=== PATIENT | female | born 1960 | race Caucasian/White ===

== ENCOUNTER → 2016-12-20 | Outpatient (CLI) | payer OTHER ==
--- NOTE | 2016-12-21 09:00 | WOMENS IMAGING REPORT ---
EXAM DESCRIPTION: BILAT SCREENING MAMMO W/CAD COMPLETED DATE/TIME: 12/20/2016 4:19 pm REASON FOR STUDY: Z12.31, ROUTINE SCREENING MAMMO Z12.31 ENCNTR SCREEN MAMMOGRAM FOR MALIGNANT NEOP LASM OF [place] COMPARISON: Multiple since 2008 TECHNIQUE: Standard craniocaudal and mediolateral oblique views of each breast recorded using digita l acquisition. LIMITATIONS: None. FINDINGS: Findings present which are benign by mammographic criteria. No suspicious masses, calcifi cations or architectural distortion. Pertinent benign findings: Stable bilateral breast calcifications Read with the assistance of CAD. .[facility] - R2 Cenova Version 1.3 .[facility] - R2 Cenova Version 1.3 .[facility] - R2 Cenova Version 2.4 .[facility] [place] - R2 Cenova Version 2.4 .[facility] - R2 Adjunct Professor Version 9.2 Benign mammographic findings may include one or more of the following: Smooth masses, popcorn/rim/co arse calcifications, asymmetries, post-procedure changes, and lesions with long-standing stability. IMPRESSION: BENIGN MAMMOGRAPHIC FINDINGS. BIRADS 2 BREAST DENSITY: b. There are scattered areas of fibroglandular density. BIRAD: 2 BENIGN FINDING(S) RECOMMENDATION: ROUTINE SCREENING Please consider bilateral screening tomosynthesis in December 2017 COMMENT: The patient has been notified of the results by letter per [place] requirements. Additional no tification policies are in place for contacting patient with suspicious or incomplete findings. Quality ID #[id number]: The [employer] recommends an annual screening mammogram for women aged 40 years or over. This facility utilizes a reminder system to ensure that all patients receive reminder letters, and/or direct phone calls for appointments. This includes reminders for routine scr eening mammograms, diagnostic mammograms, or other Breast Imaging Interventions when appropriate. Th is patient will be placed in the appropriate reminder system. The [employer] (ACR) has developed recommendations for screening MRI of the breast s in certain patient populations, to be used in conjunction with mammography. Breast MRI surveillanc e may be appropriate for women with more than 20% lifetime risk of developing breast cancer as deter mined by genetic testing, significant family history of the disease, or history of mantle radiation f or Hodgkins Disease. ACR Practice Guidelines 2008. TECHNICAL DOCUMENTATION: FINDING NUMBER: (1) ASSESSMENT: (1) JOB ID: [id number] [employer]- All Rights Reserved
== END ==
LOC: WI 14:44
PROVIDERS: ATTEND Nurse Practitioner
DX: Z12.31 Encounter for screening mammogram for malignant neoplasm of breast (principal)
CPT/HCPCS: 77067; G0202

== ENCOUNTER 2017-07-18 13:46 | Inpatient (IN) | payer OTHER ==
[~2017-07-18 13:46] MED LIST: DEXAMETHASONE SOD PHOSPHATE INJ 4 MG/1 ML VIAL ONE; LIDOCAINE 2% INJ-PF (20 MG/ML) 2 ML AMPUL ONE; METOCLOPRAMIDE HCL INJ/PF 10 MG/2 ML SDV ONE; ONDANSETRON HCL INJ/PF 4 MG/2 ML SDV ONE; ROCURONIUM BROMIDE INJ 50 MG/5 ML VIAL IV ONE; SUCCINYLCHOLINE CHLORIDE INJ 200 MG/10 ML VIAL ONE
--- NOTE | 2017-07-18 15:23 | ER Document Report ---
ED Medical Screen (RME) - General Chief Complaint: Abdominal Pain Stated Complaint: LOWER ABDOMINAL PAIN Time Seen by Provider: 07/18/17 15:17 Mode of Arrival: Ambulatory Information source: Patient Notes: 57-year-old female presents with complaints of nausea vomiting diarrhea over the past week symptoms worsen since 5:00 yesterday. Patient notes abdominal distention, xray at [facility] concerning for early sbo vs ileus I have greeted and performed a rapid initial assessment of this patient. A comprehensive ED assessment and evaluation of the patient, analysis of test results and completion of the medical decision making process will be conducted by additional ED providers. PHYSICAL EXAMINATION: GENERAL: Well-appearing, well-nourished and in no acute distress. HEAD: Atraumatic, normocephalic. EYES: Pupils equal round extraocular movements intact, conjunctiva are normal. ENT: Nares patent NECK: Normal range of motion LUNGS: No respiratory distress Abd: distenstion Musculoskeletal: Normal range of motion NEUROLOGICAL: Normal speech, normal gait. PSYCH: Normal mood, normal affect. SKIN: Warm, Dry, normal turgor, no rashes or lesions noted. TRAVEL OUTSIDE OF THE [place] IN LAST 30 DAYS: No - Related Data Allergies/Adverse Reactions: Sulfa (Sulfonamide Antibiotics) Allergy (Verified 07/18/17 13:53) Past Medical History - Social History Frequency of alcohol use: None Drug Abuse: None Renal/ Medical History: Denies: Hx Peritoneal Dialysis Physical Exam - Vital signs Vitals: Temp Pulse Resp BP Pulse Ox 98.9 F 105 H 18 122/56 L 96 07/18/17 13:54 07/18/17 13:54 07/18/17 13:54 07/18/17 13:54 07/18/17 13:54 Course - Vital Signs Vital signs: Temp Pulse Resp BP Pulse Ox 98.9 F 105 H 18 122/56 L 96 07/18/17 13:54 07/18/17 13:54 07/18/17 13:54 07/18/17 13:54 07/18/17 13:54
[2017-07-18] MEDS ORDERED: HYDROMORPHONE HCL INJ/PF 2 MG/ML AMPULE IV ONE ×2 (15:24→19:03)
[2017-07-18] MEDS ORDERED: ONDANSETRON HCL INJ/PF 4 MG/2 ML SDV IV ONE (15:24)
[2017-07-18] MEDS ORDERED: NORMAL SALINE 1000 ML 1,000 ML IV ONE (15:24)
[2017-07-18 16:29] LABS: HEMATOCRIT 37.3 % (36.0-47.0); HEMOGLOBIN 12.6 g/dL (12.0-15.5); MEAN CORPUSCULAR HEMOGLOBIN 27.9 pg (27.0-33.4); MEAN CORPUSCULAR HGB CONC 33.7 g/dL (32.0-36.0); MEAN CORPUSCULAR VOLUME 83 fl (80-97); PLATELET COUNT 779 10^3/uL (150-450); RED CELL DISTRIBUTION WIDTH 13.5 % (11.5-14.0); WHITE BLOOD COUNT 29.5 10^3/uL (4.0-10.5)
[2017-07-18 16:32] LABS: APPEARANCE,URINE SLIGHTLY-CLOUDY; BILIRUBIN,URINE SMALL (NEGATIVE); COLOR,URINE AMBER; GLUCOSE, URINE 50 mg/dL (NEGATIVE); KETONES,URINE 20 mg/dL (NEGATIVE); LEUKOCYTE ESTERASE,URINE TRACE (NEGATIVE); NITRITE,URINE NEGATIVE (NEGATIVE); PROTEIN,URINE 100 mg/dL (NEGATIVE); URINE SPECIFIC GRAVITY 1.036
[2017-07-18 16:47] LABS: ABSOLUTE LYMPHOCYTES# (MANUAL) 1.2 10^3/uL (0.5-4.7); ABSOLUTE MONOCYTES # (MANUAL) 1.5 10^3/uL (0.1-1.4); ABSOLUTE NEUTROPHILS# (MANUAL) 26.8 10^3/uL (1.7-8.2); BAND NEUTROPHILS % (MANUAL) 3 % (3-5); BASOPHILS % (MANUAL) 0 % (0-2); EOSINOPHILS % (MANUAL) 0 % (0-6); LYMPHOCYTES % (MANUAL) 4 % (13-45); MONOCYTES % (MANUAL) 5 % (3-13); SEGMENTED NEUTROPHILS % (MAN) 88 % (42-78); TOTAL CELLS COUNTED 100
[2017-07-18 16:48] LABS: PLATELET COMMENT INCREASED; TOXIC GRANULATION SLIGHT
[2017-07-18 16:49] LABS: ALANINE AMINOTRANSFERASE 25 U/L (9-52); ALBUMIN 3.4 g/dL (3.5-5.0); ALKALINE PHOSPHATASE 135 U/L (38-126); ANION GAP 13 (5-19); ASPARTATE AMINO TRANSFERASE 12 U/L (14-36); BILIRUBIN,DIRECT 0.2 mg/dL (0.0-0.4); BILIRUBIN,TOTAL 0.3 mg/dL (0.2-1.3); BLOOD UREA NITROGEN 19 mg/dL (7-20); CALCIUM 9.2 mg/dL (8.4-10.2); CARBON DIOXIDE 30 mmol/L (22-30); CHLORIDE 99 mmol/L (98-107); GLUCOSE 138 mg/dL (75-110); LIPASE 37.5 U/L (23-300); POTASSIUM 3.6 mmol/L (3.6-5.0); SODIUM 141.9 mmol/L (137-145)
--- NOTE | 2017-07-18 19:02 | RADIOLOGY REPORT (SQ) ---
EXAM DESCRIPTION: CT ABD/PELVIS WITH IV ORAL COMPLETED DATE/TIME: 07/18/2017 6:41 pm REASON FOR STUDY: sbo ? COMPARISON: None. TECHNIQUE: CT scan of the abdomen and pelvis performed using helical scanning technique with dynamic intravenous contrast injection. No oral contrast. Images reviewed with lung, soft tissue, and bone windows. Reconstructed coronal and sagittal MPR images reviewed. Delayed images for evaluation of the urinary system also acquired. All images stored on PACS. All CT scanners at this facility use dose modulation, iterative reconstruction, and/or weight based d osing when appropriate to reduce radiation dose to as low as reasonably achievable (ALARA). [facility]: Dose Right [facility]: CareDose [facility]: Dose Right [facility]: Teradose 4D [facility]: Droplr CONTRAST TYPE AND DOSE: contrast/concentration: Isovue 370.00 mg/ml; Total Contrast Delivered: 81.0 ml; Total Saline Delivered: 43.0 ml RENAL FUNCTION: Creatinine 0.69 RADIATION DOSE: CT Rad equipment meets quality standard of care and radiation dose reduction techniq ues were employed. CTDIvol: 11.3 - 15.8 mGy. DLP: 1391 mGy-cm.. LIMITATIONS: None. FINDINGS: LOWER CHEST: There are minimal linear densities in the lung bases most consistent with ate lectatic changes. LIVER: Normal size. No masses. No dilated ducts. SPLEEN: Normal size. No focal lesions. PANCREAS: No masses. No significant calcifications. No adjacent inflammation or peripancreatic fluid collections. Pancreatic duct not dilated. GALLBLADDER: No identified stones by CT criteria. No inflammatory changes to suggest cholecystitis. ADRENAL GLANDS: No significant masses or asymmetry. RIGHT KIDNEY AND URETER: No solid masses. No significant calcifications. No hydronephrosis or hyd roureter. LEFT KIDNEY AND URETER: No solid masses. No significant calcifications. No hydronephrosis or hydr oureter. AORTA AND VESSELS: No aneurysm. No dissection. Renal arteries, SMA, celiac without stenosis. RETROPERITONEUM: No retroperitoneal adenopathy, hemorrhage or masses. BOWEL AND PERITONEAL CAVITY: Multiple air,fluid and contrast distended small bowel loops are identifi ed consistent with a small bowel obstruction. A complex mass is identified in the right lower quadra nt which appears to involve the cecum and appendix. The appearance would suggest an infectious or in flammatory process with possible abscess formation. This could conceivably be related to an appendic itis or cecal inflammatory process. The possibility of an underlying cecal neoplasm cannot be exclud ed. Calcification is identified within the inflammatory process which may be related to an appendico lith. APPENDIX: Not identified PELVIS: A 2.7 cm in diameter cystic mass is identified in the left pelvis presumably ovarian in etiol ogy. No free fluid. Normal bladder. ABDOMINAL WALL: No masses. No hernias. BONES: No significant or acute findings. OTHER: No other significant finding. IMPRESSION: Findings consistent with a small bowel obstruction as noted above. Complex mass is iden tified in the right lower quadrant as noted above which appears to involve the cecum and appendix. T he appearance would suggest an infectious or inflammatory process as noted above. Possibility of an underlying cecal neoplasm cannot be excluded. Clinical correlation is recommended. Other findings a s noted above TECHNICAL DOCUMENTATION: JOB ID: [id number] Quality ID # [id number]: Final reports with documentation of one or more dose reduction techniques (e.g., Au tomated exposure control, adjustment of the mA and/or kV according to patient size, use of iterative reconstruction technique) 2010 [employer]- All Rights Reserved
[2017-07-18] MEDS ORDERED: RINGERS SOLUTION,LACTATED 1,000 ML IV ONE (19:13)
--- NOTE | 2017-07-18 19:17 | ER Document Report ---
ED General - General Chief Complaint: Abdominal Pain Stated Complaint: LOWER ABDOMINAL PAIN Time Seen by Provider: 07/18/17 15:17 Mode of Arrival: Ambulatory Information source: Patient, Relative TRAVEL OUTSIDE OF THE [place] IN LAST 30 DAYS: No - HPI Patient complains to provider of: Abdominal Pain Onset: Last week Onset/Duration: Gradual Severity: Moderate Pain Level: 4 Associated symptoms: Diarrhea, Nausea Exacerbated by: Movement, Walking, Coughing, Deep breathing Relieved by: Denies Similar symptoms previously: No Recently seen / treated by doctor: Yes - Over from primary medical doctor's office at [facility] urgent Notes: 57-year-old female. She states she has no past medical history. She only takes [id number] medications including Flonase. Past surgical history significant for 2 C-sections. Patient did not get her flu vaccination. Patient is sent over from her primary medical doctors at [facility] urgent care at [place]. She presented there for abdominal pain. Patient states she has had the abdominal pain waxing and waning for the last week. It started in the bilateral lower quadrants and then became diffuse. She has had some chills. No vomiting no fevers. Patient is tried mag citrate without leave. Last bowel movement was today. Last p.o. intake was last night around 930 patient had a couple green beans. Acute abdominal series today showed evolving small bowel obstruction. Sent here for evaluation. - Related Data Allergies/Adverse Reactions: Sulfa (Sulfonamide Antibiotics) Allergy (Verified 07/18/17 13:53) Past Medical History - General Information source: Patient - Social History Smoking Status: Never Smoker Frequency of alcohol use: None Drug Abuse: None Lives with: Family Family History: Reviewed & Not Pertinent Patient has suicidal ideation: No Patient has homicidal ideation: No - Medical History Notes: She has not had a colonoscopy or endoscopy - Past Medical History Cardiac Medical History: Reports: None Pulmonary Medical History: Reports: None EENT Medical History: Reports: None Neurological Medical History: Reports: None Endocrine Medical History: Reports: None Renal/ Medical History: Reports: None. Denies: Hx Peritoneal Dialysis Malignancy Medical History: Reports: None GI Medical History: Reports: None Musculoskeltal Medical History: Reports None Skin Medical History: Reports None Psychiatric Medical History: Reports: None Traumatic Medical History: Reports: None Past Surgical History: Reports: None, Hx Section Review of Systems - Review of Systems Constitutional: No symptoms reported EENT: No symptoms reported Cardiovascular: No symptoms reported Respiratory: No symptoms reported Gastrointestinal: See HPI Genitourinary: No symptoms reported Female Genitourinary: No symptoms reported Skin: No symptoms reported Hematologic/Lymphatic: No symptoms reported Neurological/Psychological: No symptoms reported Physical Exam - Vital signs Vitals: Temp Pulse Resp BP Pulse Ox 98.9 F 105 H 18 122/56 L 96 07/18/17 13:54 07/18/17 13:54 07/18/17 13:54 07/18/17 13:54 07/18/17 13:54 - Notes Notes: PHYSICAL EXAMINATION: GENERAL: Appearing female laying in bed in mild distress secondary to abdominal discomfort HEAD: Atraumatic, normocephalic. EYES: Pupils equal round and reactive to light, extraocular movements intact, conjunctiva are normal. ENT: Nares patent, oropharynx clear without exudates. Dry mucous membranes. NECK: Normal range of motion, supple without lymphadenopathy LUNGS: Breath sounds clear to auscultation bilaterally and equal. No wheezes rales or rhonchi. HEART: Regular rate and rhythm without murmurs ABDOMEN: Markedly distended abdomen with hypo-active bowel sounds. No masses appreciated.. Female : deferred Musculoskeletal: Normal range of motion, no pitting or edema. No cyanosis. NEUROLOGICAL: Cranial nerves grossly intact. Normal speech. Normal sensory, motor exams PSYCH: Normal mood, normal affect. SKIN: Warm, Dry, normal turgor, no rashes or lesions noted. Course - Re-evaluation Re-evalutation: 07/18/17 19:16 Surgery, Dr. Montgomery called. Discussed patient. He is reviewing ct scan. 07/18/17 20:00 Dr. Montgomery presented to the emergency department. He asked for the patient have Levaquin and Flagyl as well as IV hydration. All ordered. And the nurse was made aware. NG tube can be placed in the OR. 07/18/17 20:05 Labs- All tests 24 hr 07/18/17 07/18/17 07/18/17 16:00 16:00 16:00 WBC 29.5 H RBC 4.50 Hgb 12.6 Hct 37.3 MCV 83 MCH 27.9 MCHC 33.7 RDW 13.5 Plt Count 779 H Total Counted 100 Seg Neutrophils % Not Reportable Seg Neuts % (Manual) 88 H Band Neutrophils % 3 Lymphocytes % Not Reportable Lymphocytes % (Manual) 4 L Monocytes % Not Reportable Monocytes % (Manual) 5 Eosinophils % Not Reportable Eosinophils % (Manual) 0 Basophils % Not Reportable Basophils % (Manual) 0 Absolute Neutrophils Not Reportable Abs Neuts (Manual) 26.8 H Absolute Lymphocytes Not Reportable Abs Lymphs (Manual) 1.2 Absolute Monocytes Not Reportable Abs Monocytes (Manual) 1.5 H Absolute Eosinophils Not Reportable Absolute Eos (Manual) 0.0 Absolute Basophils Not Reportable Abs Basophils (Manual) 0.0 Toxic Granulation SLIGHT Platelet Comment INCREASED Sodium 141.9 Potassium 3.6 Chloride 99 Carbon Dioxide 30 Anion Gap 13 BUN 19 Creatinine 0.69 Est GFR ( Amer) > 60 Est GFR (Non-Af Amer) > 60 Glucose 138 H Calcium 9.2 Total Bilirubin 0.3 Direct Bilirubin 0.2 Neonat Total Bilirubin Not Reportable Neonat Direct Bilirubin Not Reportable Neonat Indirect Bili Not Reportable AST 12 L ALT 25 Alkaline Phosphatase 135 H Total Protein 6.0 L Albumin 3.4 L Lipase 37.5 Urine Color DELIO Urine Appearance SLIGHTLY-CLOUDY Urine pH 5.0 Ur Specific [place] 1.036 Urine Protein 100 H Urine Glucose (UA) 50 H Urine Ketones 20 H Urine Blood MODERATE H Urine Nitrite NEGATIVE Urine Bilirubin SMALL H Urine Urobilinogen 2.0 H Ur Leukocyte Esterase TRACE H Urine WBC (Auto) 28 Urine RBC (Auto) 18 U Hyaline Cast (Auto) 3 Squamous Epi Cells Auto 1 Urine Mucus (Auto) MANY Urine Ascorbic Acid NEGATIVE Abdomen/Pelvis CT 07/18/17 15:23 IMPRESSION: Findings consistent with a small bowel obstruction as noted above. Complex mass is identified in the right lower quadrant as noted above which appears to involve the cecum and appendix. The appearance would suggest an infectious or inflammatory process as noted above. Possibility of an underlying cecal neoplasm cannot be excluded. Clinical correlation is recommended. Other findings as noted above - Vital Signs Vital signs: Temp Pulse Resp BP Pulse Ox 98.9 F 105 H 18 122/56 L 96 07/18/17 13:54 07/18/17 13:54 07/18/17 13:54 07/18/17 13:54 07/18/17 13:54 - Laboratory Result Diagrams: 07/18/17 16:00 07/18/17 16:00 Laboratory results interpreted by me: 07/18/17 07/18/17 07/18/17 16:00 16:00 16:00 WBC 29.5 H Plt Count 779 H Seg Neuts % (Manual) 88 H Lymphocytes % (Manual) 4 L Abs Neuts (Manual) 26.8 H Abs Monocytes (Manual) 1.5 H Glucose 138 H AST 12 L Alkaline Phosphatase 135 H Total Protein 6.0 L Albumin 3.4 L Urine Protein 100 H Urine Glucose (UA) 50 H Urine Ketones 20 H Urine Blood MODERATE H Urine Bilirubin SMALL H Urine Urobilinogen 2.0 H Ur Leukocyte Esterase TRACE H - Diagnostic Test Radiology reviewed: Image reviewed, Reports reviewed Discharge - Discharge Clinical Impression: Small bowel obstruction, Abdominal mass Condition: Serious Disposition: ADMITTED INPATIENT Admitting Provider: Surgicalist - Dr. Montgomery Unit Admitted: Surgical Floor
[2017-07-18] MEDS ORDERED: LEVOFLOXACIN 500 MG/D5W RTU 500 MG/100 ML RTUPB IV SCH (20:00)
--- NOTE | 2017-07-18 20:10 | PDOC H&P ---
History of Present Illness Patient complains of: Abdominal pain History of Present Illness: NATALEE ANDERSON is a 57 year old female who was in usual state of good health until last week when she had gradual onset of crampy lower abdominal pain that worsened with it severely worsening yesterday. Patient had some nausea and abdominal bloating. She had a bowel movement earlier today. She denies any emesis. She has felt some chills. She denies any prior history of intestinal problems. She has never had a colonoscopy. Her only past surgical history is 2 C-sections. She has not had any weight loss in the past few months nor malaise in the past few months nor significant bowel habit changes in the last few months. Due to the pain and poor appetite she has not eaten all day today. Social History Smoking Status: Never Smoker Family History Parental Family History Reviewed: No Children Family History Reviewed: No Sibling(s) Family History Reviewed.: No Medication/Allergy Allergies/Adverse Reactions: Sulfa (Sulfonamide Antibiotics) Allergy (Verified 07/18/17 13:53) Physical Exam Vital Signs: Temp Pulse Resp BP Pulse Ox 98.9 F 105 H 18 122/56 L 96 07/18/17 13:54 07/18/17 13:54 07/18/17 13:54 07/18/17 13:54 07/18/17 13:54 Intake & Output 07/17/17 07/18/17 07/19/17 06:59 06:59 06:59 Weight 75.2 kg General appearance: PRESENT: no acute distress, cooperative Eye exam: PRESENT: conjunctiva pink Neck exam: PRESENT: other - Supple with no masses Respiratory exam: PRESENT: clear to auscultation stephen Cardiovascular exam: PRESENT: RRR GI/Abdominal exam: PRESENT: other - Distended, tight, tender diffusely with rebound and guarding. Maximal tenderness in the right lower quadrant. Extremities exam: PRESENT: other - No swelling Neurological exam: PRESENT: alert, awake Psychiatric exam: PRESENT: appropriate affect Skin exam: PRESENT: warm Results Laboratory Results: 07/18/17 16:00 07/18/17 16:00 07/18/17 07/18/17 07/18/17 16:00 16:00 16:00 WBC 29.5 H RBC 4.50 Hgb 12.6 Hct 37.3 MCV 83 MCH 27.9 MCHC 33.7 RDW 13.5 Plt Count 779 H Seg Neutrophils % Not Reportable Lymphocytes % Not Reportable Monocytes % Not Reportable Eosinophils % Not Reportable Basophils % Not Reportable Absolute Neutrophils Not Reportable Absolute Lymphocytes Not Reportable Absolute Monocytes Not Reportable Absolute Eosinophils Not Reportable Absolute Basophils Not Reportable Sodium 141.9 Potassium 3.6 Chloride 99 Carbon Dioxide 30 Anion Gap 13 BUN 19 Creatinine 0.69 Est GFR ( Amer) > 60 Est GFR (Non-Af Amer) > 60 Glucose 138 H Calcium 9.2 Total Bilirubin 0.3 AST 12 L ALT 25 Alkaline Phosphatase 135 H Total Protein 6.0 L Albumin 3.4 L Lipase 37.5 Urine Color DELIO Urine Appearance SLIGHTLY-CLOUDY Urine pH 5.0 Ur Specific [place] 1.036 Urine Protein 100 H Urine Glucose (UA) 50 H Urine Ketones 20 H Urine Blood MODERATE H Urine Nitrite NEGATIVE Ur Leukocyte Esterase TRACE H Urine WBC (Auto) 28 Urine RBC (Auto) 18 Impressions: Abdomen/Pelvis CT 07/18/17 15:23 IMPRESSION: Findings consistent with a small bowel obstruction as noted above. Complex mass is identified in the right lower quadrant as noted above which appears to involve the cecum and appendix. The appearance would suggest an infectious or inflammatory process as noted above. Possibility of an underlying cecal neoplasm cannot be excluded. Clinical correlation is recommended. Other findings as noted above Assessment & Plan - Diagnosis (1) Peritonitis (acute) generalized Is this a current diagnosis for this admission?: Yes Plan: With inflammatory mass in the right lower quadrant likely a perforated appendicitis versus atypical presentation of cecal cancer with perforation. In light of her peritonitis, will hydrate patient give antibiotics and take her to the OR for an exploratory laparotomy with probable partial colon resection, possible appendectomy, possible colostomy. I have discussed with the patient the risk and benefits of the procedure including risk of sepsis, infection, bleeding, adjacent structure injury, anastomotic leak, adjacent structure injury especially the ureter. Patient understands and agrees to proceed.
[2017-07-18] MEDS: METRONIDAZOLE 500 MG/NS RTU 100 ML IV SCH (21:36)
[2017-07-19] MEDS ORDERED: FENTANYL CITRATE INJ/PF 250 MCG/5 ML AMPULE ONE (01:14)
[2017-07-19] MEDS ORDERED: ACETAMINOPHEN 100 ML IV ONE (01:15)
[2017-07-19] MEDS ORDERED: EPHEDRINE SULFATE INJ 50 MG/1 ML AMPULE ONE (01:15)
[2017-07-19] MEDS ORDERED: PROPOFOL INJ 200 MG/20 ML VIAL IV ONE (01:15)
[2017-07-19] MEDS ORDERED: BUPIVACAINE HCL 0.25 % INJ/PF (2.5 MG/1 ML) 30 ML VIAL ONE (01:15)
[2017-07-19] MEDS ORDERED: MIDAZOLAM 2 MG/2 ML INJ ONE ×2 (01:15→04:28)
[2017-07-19] MEDS ORDERED: HYDROMORPHONE HCL INJ/PF 2 MG/ML AMPULE ONE ×2 (01:16→04:32)
[2017-07-19] MEDS ORDERED: DEXTROSE 50%-WATER 25 GM/50 ML DISP.SYRIN IV PRN ×2 (05:04)
[2017-07-19] MEDS ORDERED: GLUCAGON,HUMAN RECOMB 1 MG INJ SUBCUT PRN (05:04)
[2017-07-19] MEDS ORDERED: ONDANSETRON HCL INJ/PF 4 MG/2 ML SDV IV PRN (05:04)
[2017-07-19] MEDS ORDERED: DEXTROSE 40% GEL 15 GM TUBE PO PRN ×2 (05:04)
--- NOTE | 2017-07-19 05:37 | Operative Report ---
Operative Report DATE OF SURGERY: 07/19/17 PREOPERATIVE DIAGNOSIS: Peritonitis POSTOPERATIVE DIAGNOSIS: Inflammatory mass of the cecum with peritonitis and small bowel obstruction, right adnexal mass. Gallstone OPERATION: Exploratory laparotomy with right hemicolectomy and right adnexal mass excision. SURGEON: GILBERTO COUCH ANESTHESIA: GA TISSUE REMOVED OR ALTERED: Right colon, right adnexal mass COMPLICATIONS: None ESTIMATED BLOOD LOSS: 100 cc INTRAOPERATIVE FINDINGS: Inflammatory mass of the pelvis encompassing the cecum and terminal ileum and the right adnexa. Turbid fluid throughout the peritoneal cavity consistent with peritonitis. Gallstones. PROCEDURE: Informed consent was obtained. Patient was brought to the operating room and placed on the operating room table in the supine position. After satisfactory induction of general anesthesia patient's abdomen was prepped and draped in usual sterile fashion. A midline abdominal incision was made dissection carried down through the fascia and the peritoneal cavity was entered without difficulty. There was turbid fluid throughout the peritoneal cavity. Exploratory laparotomy was performed. The liver felt smooth. Stomach felt smooth and NG tube position was confirmed. The gallbladder appeared normal however a palpable stone was noted. The small bowel was markedly distended the transverse colon appeared normal. The distal right colon appeared normal. The descending colon felt normal. The cecum and the terminal ileum was plastered to the pelvis with a feel of inflammatory mass. The adhesion of the terminal ileum was creating a functional obstruction. The right adnexa was also involved with this process. The sigmoid colon felt normal proximal and distal to this process and there was some adhesion to this sigmoid colon from this inflammatory process but it appeared that the sigmoid colon was not the primary culprit. Purulent fluid was noted around the cecal region. The right colon was mobilized beginning at the hepatic flexure taking great care to avoid injury to the underlying duodenum, entering a clean plane and working inferiorly toward where the cecum was plastered to the pelvis. With combination of blunt and sharp dissection the cecum was able to be mobilized off of the pelvis it felt firm with inflammatory changes of the cecum and the terminal ileum with no discernible appendix. The terminal ileum was divided with a KENY stapling device several centimeters away from the ileocecal junction where it felt soft and pliable. The very distal terminal ileum wall felt firm and edematous. The transverse colon was divided just distal to the hepatic flexure with a KENY stapling device. The mesentery of the right colon was resected. The ileocolic artery was taken near its origin by clamping dividing and tying. The mesentery of the terminal ileum was markedly thickened and the resected portion's mesentery was taken using the LigaSure device. The specimen was passed off the table. Inspection of the pelvis demonstrated inflammatory changes in the pelvis with a right adnexal mass. Gynecology consultation was obtained. We felt that with the inflammatory changes of the right adnexa, resection of this adnexal mass was indicated. Please refer to gynecology operative report for this portion of the dictation. The sigmoid colon was again inspected and it felt soft and pliable proximal and distal to the area of inflammatory changes in the pelvis. Again I did not think that the sigmoid colon was the culprit based on this finding. The small bowel appeared dilated and slightly thickened distally but otherwise appeared normal with no other points of obstruction. Bowel continuity was re-created creating a [id number] functional end-to-end anastomosis between the ileum and the transverse colon. The anastomosis was made with a KENY stapling device. The enterotomies created to introduced a stapling device was closed with a TA stapling device. Strong palpable pulses were noted in the transverse colon end and the ileum. No evidence of ischemia was noted at the anastomosis. Anastomosis appeared secure. The mesenteric defect was closed with running Vicryl suture. The operative field was irrigated and irrigant aspirated out. A Blake-Espinoza drain was placed into the patient's pelvis and brought out through separate stab incision in the patient's right lower abdomen and sutured in place. Hemostasis appeared to be good. Sponge needle and instrument counts were all correct. Omentum was draped over the bowel. Fascia was closed with running PDS suture. Skin was closed loosely with alayna and packed getting was placed in between. Marcaine was injected at the operative site. Patient tolerated the procedure well with no apparent complications and was taken to the intensive care unit.
[2017-07-19] MEDS ORDERED: PROPOFOL 100 ML IV ONE (05:57)
[2017-07-19] MEDS ORDERED: PROPOFOL 100 ML IV PRN (06:02)
[2017-07-19] MEDS: NORMAL SALINE 1000 ML 1,000 ML IV PRN ×3 (06:45→21:44)
[2017-07-19] MEDS: METRONIDAZOLE 500 MG/NS RTU 100 ML IV SCH ×4 (06:45→18:07)
[2017-07-19 06:58] LABS: HEMATOCRIT 34.8 % (36.0-47.0); HEMOGLOBIN 11.4 g/dL (12.0-15.5); MEAN CORPUSCULAR HEMOGLOBIN 27.1 pg (27.0-33.4); MEAN CORPUSCULAR HGB CONC 32.7 g/dL (32.0-36.0); MEAN CORPUSCULAR VOLUME 83 fl (80-97); PLATELET COUNT 696 10^3/uL (150-450); RED CELL DISTRIBUTION WIDTH 13.7 % (11.5-14.0); WHITE BLOOD COUNT 25.7 10^3/uL (4.0-10.5)
[2017-07-19 07:11] LABS: ANION GAP 7 (5-19); BLOOD UREA NITROGEN 23 mg/dL (7-20); CARBON DIOXIDE 26 mmol/L (22-30); CHLORIDE 103 mmol/L (98-107); GLUCOSE 164 mg/dL (75-110); SODIUM 136.4 mmol/L (137-145)
[2017-07-19 09:22] LABS: ARTERIAL BLOOD BASE EXCESS 0.7 mmol/L; ARTERIAL BLOOD H2CO3 1.19 mmol/L (1.05-1.35); ARTERIAL BLOOD HCO3 25.2 mmol/L (20-26); ARTERIAL BLOOD O2 SATURATION 98.3 % (94-98); ARTERIAL BLOOD PCO2 39.7 mmHg (35-45); ARTERIAL BLOOD PH 7.42 (7.35-7.45); ARTERIAL BLOOD PO2 117.3 mmHg (80-100); ARTERIAL BLOOD TOTAL CO2 26.4 mmol/L (21-25)
[2017-07-19 09:25] LABS: ARTERIAL BLOOD FIO2 40%
[2017-07-19] MEDS: LORATADINE/PSEUDOEPHEDRINE SUL 10-240 MG TAB.SR.24H PO SCH (11:08)
[2017-07-19] MEDS: FLUTICASONE NASAL SPRAY 50 MCG/SPRY 120 SPRAY/16 GM NASL SCH (11:08)
--- NOTE | 2017-07-19 12:05 | PDOC PROGRESS REPORT ---
Subjective Progress Note for:: 07/19/17 Subjective:: POD #1 s/p right hemicolectomy for peritonitis with a cecal inflammatory mass. The patient is doing well, remains intubated on mechanical ventilation. Reason For Visit: PERITONITIS Physical Exam Vital Signs: Temp Pulse Resp BP Pulse Ox 98.4 F 95 16 139/67 H 100 07/19/17 10:00 07/19/17 11:27 07/19/17 11:27 07/19/17 11:27 07/19/17 11:27 Intake & Output 07/18/17 07/19/17 07/20/17 06:59 06:59 06:59 Intake Total 1000 Output Total 1000 220 Balance 0 -220 Weight 76.5 kg General appearance: PRESENT: no acute distress, other - on mechanical ventilation via an orotracheal tube. Head exam: PRESENT: atraumatic Eye exam: PRESENT: conjunctiva pink Ear exam: PRESENT: normal external ear exam Mouth exam: PRESENT: other - orotracheal tube in place Neck exam: ABSENT: carotid bruit, JVD, lymphadenopathy, thyromegaly Respiratory exam: PRESENT: clear to auscultation stephen, other - on mechanical ventilation Cardiovascular exam: PRESENT: RRR. ABSENT: diastolic murmur, rubs, systolic murmur GI/Abdominal exam: PRESENT: other - midline surgical incision has a dressing over it -clean and dry; DOYLE drain from the right lower quadrant. Gentrourinary exam: PRESENT: indwelling catheter Neurological exam: PRESENT: other - sedated but responsive to speech. Results Laboratory Results: 07/19/17 06:15 07/19/17 06:15 07/19/17 07/19/17 07/19/17 06:15 06:15 08:58 WBC 25.7 H RBC 4.20 Hgb 11.4 L Hct 34.8 L MCV 83 MCH 27.1 MCHC 32.7 RDW 13.7 Plt Count 696 H Carbonic Acid 1.19 HCO3/H2CO3 Ratio 21:1 ABG pH 7.42 ABG pCO2 39.7 ABG pO2 117.3 H ABG HCO3 25.2 ABG O2 Saturation 98.3 H ABG Base Excess 0.7 FiO2 40% Sodium 136.4 L Potassium 4.0 Chloride 103 Carbon Dioxide 26 Anion Gap 7 BUN 23 H Creatinine 0.71 Est GFR ( Amer) > 60 Est GFR (Non-Af Amer) > 60 Glucose 164 H Calcium 8.0 L Impressions: Abdomen/Pelvis CT 07/18/17 15:23 IMPRESSION: Findings consistent with a small bowel obstruction as noted above. Complex mass is identified in the right lower quadrant as noted above which appears to involve the cecum and appendix. The appearance would suggest an infectious or inflammatory process as noted above. Possibility of an underlying cecal neoplasm cannot be excluded. Clinical correlation is recommended. Other findings as noted above Assessment & Plan - Diagnosis (2) Peritonitis (acute) generalized Is this a current diagnosis for this admission?: Yes - Plan Summary Plan Summary: Will try to wean and extubate this morning. DC NGT after extubating. Continue IV antibiotics. DVT prophylaxis - mechanical and pharmacologic. Analgesia.
[2017-07-19] MEDS ORDERED: FUROSEMIDE INJ/PF 20 MG/2 ML SDV IV ONE (12:45)
[2017-07-19] MEDS ORDERED: NORMAL SALINE 1000 ML 1,000 ML IV ONE (12:45)
--- NOTE | 2017-07-19 13:16 | OPERATIVE REPORT E ---
Operative Report NAME: NATALEE ANDERSON : 1960 AGE: 57Y DATE OF SURGERY: 07/19/2017 ROOM: 601 BRIEF OPERATIVE NOTE: Was consulted intraoperatively by Dr. Montgomery who was performing a bowel resection on the patient due to severe adnexal adhesions and inflammatory * involving the ovary and uterus. He consulted me intraoperatively to assess the adnexa and to help with removal of the adnexa. FINDINGS: The uterus that was covered in inflammatory adhesions deep into the pelvis, very difficult to ascertain plane of the uterus to the pelvic sidewall. In fact, everything was densely adhesed and was with inflammatory tissue. There was an area of the right adnexa that was indeed necrotic and there was concern of leaving this intact. Suspected ovarian tissue due to the location at the uterine fundus. This tissue was isolated using Matt clamp and tied off with an 0 Vicryl. The tissue was extremely friable necessitating use of the LigaSure to ligate the specimen from the pedicle and the cyst actually tore through the pedicle. The LigaSure was used to transect after successful isolation and identification of planes that would prevent ureter injury and it was transected using the LigaSure at the utero-ovarian ligament. I did discuss with Dr. Montgomery I did not think we had removed the entire right ovary and I felt that the right ovary may be adhered further behind the uterus in inflammatory adhesions below this removal. The specimens that I did remove were sent back to pathology for confirmation of tissue. Please see the rest of the operative note, which will be dictated by Dr. Montgomery. DICTATING PHYSICIAN: SARA CUTLER M.D. [id number] PHY#: [id number] ID: [id number] JOB#: [id number] ACCT: [id number] cc:SARA CUTLER M.D. > MTDD
[2017-07-19] MEDS: MORPHINE SULFATE 10 MG/ML INJ IV PRN (13:40)
[2017-07-19] MEDS: ENOXAPARIN SODIUM INJ 40 MG/0.4 ML DISP.SYRIN SUBCUT SCH (18:07)
--- NOTE | 2017-07-19 21:18 | CONSULTATION REPORT E ---
Consultation Report NAME: NATALEE ANDERSON : 1960 AGE: 57Y DATE: 07/19/2017 ROOM: 601 A TO: CRISTINO BOYD NP ATTENDING PHYSICIAN: Rupesh Montgomery MD. CONSULTING PHYSICIAN: Rupesh Montgomery MD REASON FOR CONSULTATION: To aide in the medical management of a postoperative patient with peritonitis. HISTORY OF PRESENT ILLNESS: The patient is a 57-year-old female that was in her usual state of health until approximately 7 days prior to presentation when she developed a crampy lower abdominal pain that was worsened with eating. The patient had some nausea as well as bloating. The patient had a bowel movement on the day of presentation without issue. The patient denied any emesis, but did admit to feeling fevered. The patient denied any history of GI surgeries and never had a colonoscopy. The patient denied any weight loss, normal weight in the past few months. No change in bowel habits. Due to the pain, the patient's appetite had gotten worse and the patient had no other complaints. While in the emergency department the patient did have a CT scan that was consistent with an inflammatory mass in the right lower quadrant that was suspected to be appendicitis versus an atypical presentation of a cecal mass with perforation. In light of repair tonight the patient was aggressively hydrated, given antibiotics, and taken to the OR for an exploratory lap with Dr. Montgomery on 07/19/2017. The patient underwent exploratory lap with right hemicolectomy and right adnexal mass excision. Intraoperatively Dr. Kaye with [employer] was consulted regarding this. Subsequently after the patient's operative procedure she was transitioned the intensive care unit still intubated. The patient initially did have some low blood pressures but responded nicely to fluid bolus. The patient was not tachycardic, although the patient had an elevated white count the patient did not appear toxic. The patient was making a decent amount of james urine and the hospitalists have been consulted. PAST MEDICAL HISTORY: 1. Seasonal allergies. 2. section x2. 3. Exploratory lap on 07/19/2017. ALLERGIES: SULFA. HOME MEDICATIONS: 1. Flonase 2 sprays in nostril daily. 2. Loratadine-D a 24 hour tablet, 1 tablet p.o. daily. 3. Pataday 1 drop in both eyes daily p.r.n. SOCIAL HISTORY: The patient currently resides at home with her , who is also her surrogate decision maker, Gavin, can be reached at [phone]. The patient is employed with the school system. The patient has no history of tobacco use, no history of alcohol or illicit drug use. FAMILY MEDICAL HISTORY: Has been unable to be obtained given the patient's intubation. REVIEW OF SYSTEMS: Unobtainable. PHYSICAL EXAMINATION: GENERAL: On examination the patient is a well-developed, well-nourished 57-year-old female who will awaken although sedated, able to easily follow commands. She does not appear to be distressed. VITAL SIGNS: Temperature is 97.7, pulse 92, respirations 16, blood pressure 125/59, oxygen saturation is 98% on 35% FiO2. The patient is currently on pressor support. SKIN: Warm and dry; no rash, she not diaphoretic. HEENT: Pupils equal, round reactive to light and accommodation. Conjunctivae are pink. There is no evidence of JVP. ET tube is in place with Lena. No palpable lymphadenopathy or thyromegaly. CARDIOVASCULAR: Heart is regular. There is no murmur or rub. CHEST: Clear, symmetrical, unlabored. ABDOMEN: Post surgical. DOYLE drain in place. GENITOURINARY: Higgins is draining a lot of james urine. EXTREMITIES: No clubbing, cyanosis, edema, or peripheral signs of embolization. Pedal pulses +1 noted bilaterally. All 4 extremities are appropriately warm to the touch. PSYCHIATRIC: Unable to fully assess. LABORATORY DATA: Hematology obtained on 07/19/2017; WBC is 25.7, hemoglobin is 11.4, hematocrit is 34.8, platelet count is 696,000. ABG obtained on 07/19/2017; pH of 7.42, pCO2 is 39.7, pO2 is 117, bicarb is 25, total CO2 is 26. Chemistry obtained on 07/19/2017; sodium is 136, potassium 4.0, chloride is 103, carbon dioxide 26, BUN 23, creatinine is 0.71, glucose 164, calcium is 8.0, bilirubin 0.3, AST 12, ALT 25, alk-phos 135, total protein 6.0, albumin 3.4, lipase 37.6. IMPRESSION AND PLAN: 1. Peritonitis. The patient is status post operative repair. The patient appears to be appropriately covered for now. White count has improved. Will repeat CBC in the a.m. and follow. Postoperative state management as per primary team. 2. Vent management. Will defer this to Dr. Trinh. The patient does appear to be extubatable given that she is on pressor support, able to follow commands, and on minimal FiO2. 3. Sepsis secondary to #1. Again the patient appears to be on appropriate antibiotic coverage. CODE STATUS: The patient is a full Code. DISPOSITION: Depending on the patient's symptomatology and diagnostic findings will reevaluate in the a.m. as needed. TIME SPENT: On this consultation, including assessment, plan, physical examination, and speciality collaboration is 35 minutes. DICTATING PHYSICIAN: CRISTINO BOYD NP [id number] PHY#: [id number] ID: [id number] JOB#: [id number] ACCT: [id number] cc:CRISTINO BOYD NP > MTDD
[2017-07-19] MEDS: LEVOFLOXACIN 500 MG/D5W RTU 500 MG/100 ML RTUPB IV SCH (21:43)
[2017-07-20] MEDS: METRONIDAZOLE 500 MG/NS RTU 100 ML IV SCH ×4 (00:44→17:45)
[2017-07-20 04:26] LABS: HEMATOCRIT 28.9 % (36.0-47.0); HEMOGLOBIN 9.6 g/dL (12.0-15.5); MEAN CORPUSCULAR HEMOGLOBIN 27.8 pg (27.0-33.4); MEAN CORPUSCULAR HGB CONC 33.3 g/dL (32.0-36.0); MEAN CORPUSCULAR VOLUME 84 fl (80-97); PLATELET COUNT 650 10^3/uL (150-450); RED BLOOD COUNT 3.46 10^6/uL (3.72-5.28); RED CELL DISTRIBUTION WIDTH 13.5 % (11.5-14.0); WHITE BLOOD COUNT 21.9 10^3/uL (4.0-10.5)
[2017-07-20 04:32] LABS: ANION GAP 6 (5-19); BLOOD UREA NITROGEN 24 mg/dL (7-20); CALCIUM 7.8 mg/dL (8.4-10.2); CARBON DIOXIDE 28 mmol/L (22-30); CHLORIDE 108 mmol/L (98-107); GLUCOSE 108 mg/dL (75-110); MAGNESIUM 2.4 mg/dL (1.6-2.3); POTASSIUM 4.1 mmol/L (3.6-5.0); SODIUM 141.7 mmol/L (137-145)
--- NOTE | 2017-07-20 06:38 | RADIOLOGY REPORT (SQ) ---
EXAM DESCRIPTION: CHEST SINGLE VIEW CLINICAL HISTORY: septic shock COMPARISON: None. FINDINGS: Single frontal view of the chest. The cardiomediastinal silhouette has normal size and contour. Minimal left basilar opacity. No pneumothorax or large pleural effusion. No displaced rib fractures identified. Upper abdominal soft tissues are unremarkable. IMPRESSION: 1. Minimal left basilar opacity regular to subsegmental atelectasis. Developing pneumonic consolidation is also a consideration.
[2017-07-20] MEDS: MORPHINE SULFATE 10 MG/ML INJ IV PRN ×2 (08:32→16:53)
[2017-07-20] MEDS: NORMAL SALINE 1000 ML 1,000 ML IV PRN ×2 (08:33→22:34)
[2017-07-20] MEDS: LORATADINE/PSEUDOEPHEDRINE SUL 10-240 MG TAB.SR.24H PO SCH (10:03)
[2017-07-20] MEDS: FLUTICASONE NASAL SPRAY 50 MCG/SPRY 120 SPRAY/16 GM NASL SCH (10:03)
--- NOTE | 2017-07-20 12:23 | PROGRESS NOTE E ---
Progress Note NAME: NATALEE ANDERSON : 1960 AGE: 57Y DATE: 07/20/2017 ROOM: 601 SUBJECTIVE: The patient is currently lying in bed. She states that she feels better today than when she came to the hospital. Still some abdominal discomfort. The patient denies any nausea, vomiting, diarrhea, no shortness of breath, dizziness, or chest pain. No fevers or chills. The patient has been afebrile. Her blood pressures have been in a good range and the patient has not voiced any other concerns at this time. REVIEW OF SYSTEMS: The rest of the review of systems is negative. MEDICATIONS: Medications have been reviewed. OBJECTIVE: GENERAL: The patient is a 57-year-old, female who is awake, alert and oriented to person, place, time and situation. She is verbal and conversational, does not appear to be in any acute distress. VITAL SIGNS: As follows: Temperature is 98.6, pulse 94, respirations 22, blood pressure 147/65, oxygen saturation 95% on room air. SKIN: Dry. She is not diaphoretic. HEENT: Mucous membranes appear moist. There is no evidence of JVP. Pupils are reactive. CARDIOVASCULAR SYSTEM: Heart is in a regular sinus rhythm. CHEST: Symmetrical, unlabored. ABDOMEN: J-P drain has a scant amount of drainage. EXTREMITIES: There is no edema. PSYCHIATRIC: The patient has a flat affect. DIAGNOSTICS: Lab values are as follows: Hematology obtained on 07/20/2017: WBCs are 21.9, hemoglobin 9.6, hematocrit 28.9, platelet count 650,000. Chemistry obtained on 07/20/2017: Sodium 141, potassium 4.1, chloride 108, carbon dioxide 28, BUN 24, creatinine 0.61, glucose 108. Calcium is 7.8, magnesium 2.4. ASSESSMENT/PLAN: 1. Peritonitis. The patient is status post operative repair. The patient appears to be appropriately covered. White count is trending down nicely. The patient has been afebrile, not tachycardic. No evidence of a septic state. Postoperative management as per primary team. 2. Vent management. The patient has been appropriately extubated and is on room air. 3. Sepsis secondary to #1, appears to have resolved. DISPOSITION: The patient is a FULL CODE. At this time, the hospitalist will sign off this case as the patient has been appropriately extubated and is stable. Please feel free to re-consult if new symptoms arise or if the patient's status changes. As always, the hospitalist would like to thank the surgicalist for allowing us to participate in the care of this patient. TIME SPENT: On this followup including assessment, plan, physical examination, patient education, and review of records, is 20 minutes. DICTATING PHYSICIAN: CRISTINO BOYD NP [id number] PHY#: [id number] ID: [id number] JOB#: [id number] ACCT: [id number] cc: >
--- NOTE | 2017-07-20 16:44 | PDOC PROGRESS REPORT ---
Subjective Progress Note for:: 07/20/17 Subjective:: feeling better less pain Reason For Visit: PERITONITIS Physical Exam Vital Signs: Temp Pulse Resp BP Pulse Ox 97.7 F 93 32 H 142/66 H 97 07/20/17 11:57 07/20/17 08:00 07/20/17 11:43 07/20/17 11:44 07/20/17 11:43 Intake & Output 07/19/17 07/20/17 07/21/17 06:59 06:59 06:59 Intake Total 1000 4651 Output Total 1000 1305 140 Balance 0 3346 -140 Weight 76.5 kg 78.9 kg GI/Abdominal exam: PRESENT: other - Incision clean Results Laboratory Results: 07/20/17 03:43 07/20/17 03:43 07/20/17 07/20/17 03:43 03:43 WBC 21.9 H RBC 3.46 L Hgb 9.6 L Hct 28.9 L MCV 84 MCH 27.8 MCHC 33.3 RDW 13.5 Plt Count 650 H Sodium 141.7 Potassium 4.1 Chloride 108 H Carbon Dioxide 28 Anion Gap 6 BUN 24 H Creatinine 0.61 Est GFR ( Amer) > 60 Est GFR (Non-Af Amer) > 60 Glucose 108 Calcium 7.8 L Magnesium 2.4 H Impressions: Abdomen/Pelvis CT 07/18/17 15:23 IMPRESSION: Findings consistent with a small bowel obstruction as noted above. Complex mass is identified in the right lower quadrant as noted above which appears to involve the cecum and appendix. The appearance would suggest an infectious or inflammatory process as noted above. Possibility of an underlying cecal neoplasm cannot be excluded. Clinical correlation is recommended. Other findings as noted above Chest X-Ray 07/20/17 06:00 IMPRESSION: 1. Minimal left basilar opacity regular to subsegmental atelectasis. Developing pneumonic consolidation is also a consideration. Assessment & Plan - Plan Summary Plan Summary: Stable post op DC Higgins Transfer to floor
[2017-07-20] MEDS: ENOXAPARIN SODIUM INJ 40 MG/0.4 ML DISP.SYRIN SUBCUT SCH (17:45)
[2017-07-20] MEDS ORDERED: ACETYLCYSTEINE 20% SOLN 800 MG/4 ML VIAL.NEB NEB SCH (20:00)
[2017-07-20] MEDS: HYDROCODONE/ACETAMINOPHEN 5-325 MG TABLET PO PRN (22:33)
[2017-07-20] MEDS: LEVOFLOXACIN 500 MG/D5W RTU 500 MG/100 ML RTUPB IV SCH (22:33)
[2017-07-21] MEDS: METRONIDAZOLE 500 MG/NS RTU 100 ML IV SCH ×4 (01:14→17:10)
[2017-07-21 06:40] LABS: HEMATOCRIT 26.6 % (36.0-47.0); HEMOGLOBIN 8.7 g/dL (12.0-15.5); MEAN CORPUSCULAR HEMOGLOBIN 27.6 pg (27.0-33.4); MEAN CORPUSCULAR HGB CONC 32.8 g/dL (32.0-36.0); MEAN CORPUSCULAR VOLUME 84 fl (80-97); PLATELET COUNT 556 10^3/uL (150-450); RED BLOOD COUNT 3.16 10^6/uL (3.72-5.28); RED CELL DISTRIBUTION WIDTH 14.1 % (11.5-14.0); WHITE BLOOD COUNT 15.7 10^3/uL (4.0-10.5)
[2017-07-21 06:49] LABS: ALANINE AMINOTRANSFERASE 21 U/L (9-52); ALBUMIN 1.8 g/dL (3.5-5.0); ALKALINE PHOSPHATASE 71 U/L (38-126); ANION GAP 6 (5-19); ASPARTATE AMINO TRANSFERASE 10 U/L (14-36); BLOOD UREA NITROGEN 15 mg/dL (7-20); CALCIUM 7.5 mg/dL (8.4-10.2); CARBON DIOXIDE 26 mmol/L (22-30); CHLORIDE 108 mmol/L (98-107); GLUCOSE 100 mg/dL (75-110); POTASSIUM 3.7 mmol/L (3.6-5.0); TOTAL PROTEIN 3.7 g/dL (6.3-8.2)
[2017-07-21 06:52] LABS: ARTERIAL BLOOD BASE EXCESS 2.6 mmol/L; ARTERIAL BLOOD H2CO3 1.14 mmol/L (1.05-1.35); ARTERIAL BLOOD HCO3 26.5 mmol/L (20-26); ARTERIAL BLOOD O2 SATURATION 90.6 % (94-98); ARTERIAL BLOOD PH 7.46 (7.35-7.45); ARTERIAL BLOOD PO2 55.4 mmHg (80-100); ARTERIAL BLOOD TOTAL CO2 27.7 mmol/L (21-25)
[2017-07-21] MEDS: HYDROCODONE/ACETAMINOPHEN 5-325 MG TABLET PO PRN ×2 (06:53→22:00)
[2017-07-21 06:56] LABS: ARTERIAL BLOOD FIO2 ROOM AIR
[2017-07-21 06:58] LABS: BILIRUBIN,TOTAL < 0.1 mg/dL (0.2-1.3)
[2017-07-21 07:08] LABS: ABSOLUTE LYMPHOCYTES# (MANUAL) 1.4 10^3/uL (0.5-4.7); ABSOLUTE MONOCYTES # (MANUAL) 0.8 10^3/uL (0.1-1.4); ABSOLUTE NEUTROPHILS# (MANUAL) 13.5 10^3/uL (1.7-8.2); BAND NEUTROPHILS % (MANUAL) 1 % (3-5); BASOPHILS % (MANUAL) 0 % (0-2); EOSINOPHILS % (MANUAL) 0 % (0-6); LYMPHOCYTES % (MANUAL) 9 % (13-45); METAMYELOCYTES % (MANUAL) 1 % (0); MONOCYTES % (MANUAL) 5 % (3-13); SEGMENTED NEUTROPHILS % (MAN) 84 % (42-78); TOTAL CELLS COUNTED 100
[2017-07-21 07:09] LABS: ANISOCYTOSIS SLIGHT; OVALOCYTES 1+; PLATELET COMMENT ADEQUATE; SCHISTOCYTES 1+; TOXIC GRANULATION 1+
--- NOTE | 2017-07-21 08:17 | RADIOLOGY REPORT (SQ) ---
EXAM DESCRIPTION: CHEST SINGLE VIEW COMPLETED DATE/TIME: 07/21/2017 7:58 am REASON FOR STUDY: pna COMPARISON: 07/20/2017. EXAM PARAMETERS: NUMBER OF VIEWS: One view. TECHNIQUE: Single frontal radiographic view of the chest acquired. RADIATION DOSE: NA LIMITATIONS: None. FINDINGS: LUNGS AND PLEURA: Minimal basilar atelectasis unchanged. No pleural effusion. No pneumot horax. MEDIASTINUM AND HILAR STRUCTURES: No masses. Contour normal. HEART AND VASCULAR STRUCTURES: Heart normal in size. Normal vasculature. BONES: No acute findings. HARDWARE: None in the chest. OTHER: No other significant finding. IMPRESSION: MINIMAL BASILAR ATELECTASIS. TECHNICAL DOCUMENTATION: JOB ID: [id number] [employer]- All Rights Reserved
[2017-07-21] MEDS: LORATADINE/PSEUDOEPHEDRINE SUL 10-240 MG TAB.SR.24H PO SCH (10:03)
[2017-07-21] MEDS: FLUTICASONE NASAL SPRAY 50 MCG/SPRY 120 SPRAY/16 GM NASL SCH (10:03)
--- NOTE | 2017-07-21 15:49 | PDOC PROGRESS REPORT ---
Subjective Progress Note for:: 07/21/17 Subjective:: no bm yet passing flatus pain minimal Reason For Visit: PERITONITIS Physical Exam Vital Signs: Temp Pulse Resp BP Pulse Ox 98.9 F 89 18 139/64 H 94 07/21/17 11:39 07/21/17 11:39 07/21/17 11:39 07/21/17 11:39 07/21/17 11:39 Intake & Output 07/20/17 07/21/17 07/22/17 06:59 06:59 06:59 Intake Total 4651 1623 Output Total 1305 340 Balance 3346 1283 Weight 78.9 kg 78.9 kg GI/Abdominal exam: PRESENT: other - Abdomen - soft, nontender incision clean Results Laboratory Results: 07/21/17 05:15 07/21/17 05:15 07/21/17 07/21/17 07/21/17 05:15 05:15 06:40 WBC 15.7 H RBC 3.16 L Hgb 8.7 L Hct 26.6 L MCV 84 MCH 27.6 MCHC 32.8 RDW 14.1 H Plt Count 556 H Seg Neutrophils % Not Reportable Lymphocytes % Not Reportable Monocytes % Not Reportable Eosinophils % Not Reportable Basophils % Not Reportable Absolute Neutrophils Not Reportable Absolute Lymphocytes Not Reportable Absolute Monocytes Not Reportable Absolute Eosinophils Not Reportable Absolute Basophils Not Reportable Carbonic Acid 1.14 HCO3/H2CO3 Ratio 23:1 ABG pH 7.46 H ABG pCO2 38.0 ABG pO2 55.4 L ABG HCO3 26.5 H ABG O2 Saturation 90.6 L ABG Base Excess 2.6 FiO2 ROOM AIR Sodium 140.0 Potassium 3.7 Chloride 108 H Carbon Dioxide 26 Anion Gap 6 BUN 15 Creatinine 0.46 L Est GFR ( Amer) > 60 Est GFR (Non-Af Amer) > 60 Glucose 100 Calcium 7.5 L Total Bilirubin < 0.1 L AST 10 L ALT 21 Alkaline Phosphatase 71 Total Protein 3.7 L Albumin 1.8 L Impressions: Abdomen/Pelvis CT 07/18/17 15:23 IMPRESSION: Findings consistent with a small bowel obstruction as noted above. Complex mass is identified in the right lower quadrant as noted above which appears to involve the cecum and appendix. The appearance would suggest an infectious or inflammatory process as noted above. Possibility of an underlying cecal neoplasm cannot be excluded. Clinical correlation is recommended. Other findings as noted above Chest X-Ray 07/21/17 06:00 IMPRESSION: MINIMAL BASILAR ATELECTASIS. Assessment & Plan - Plan Summary Plan Summary: Ileus - resolving advance diet to soft diet possible dc tomorrow
[2017-07-21] MEDS: ENOXAPARIN SODIUM INJ 40 MG/0.4 ML DISP.SYRIN SUBCUT SCH (17:11)
[2017-07-21] MEDS: LEVOFLOXACIN 500 MG/D5W RTU 500 MG/100 ML RTUPB IV SCH (23:10)
[2017-07-22] MEDS: METRONIDAZOLE 500 MG/NS RTU 100 ML IV SCH ×5 (00:51→23:29)
[2017-07-22 06:36] LABS: HEMATOCRIT 27.8 % (36.0-47.0); HEMOGLOBIN 9.4 g/dL (12.0-15.5); MEAN CORPUSCULAR HEMOGLOBIN 28.1 pg (27.0-33.4); MEAN CORPUSCULAR HGB CONC 33.8 g/dL (32.0-36.0); MEAN CORPUSCULAR VOLUME 83 fl (80-97); PLATELET COUNT 555 10^3/uL (150-450); RED BLOOD COUNT 3.34 10^6/uL (3.72-5.28); RED CELL DISTRIBUTION WIDTH 13.7 % (11.5-14.0); WHITE BLOOD COUNT 11.4 10^3/uL (4.0-10.5)
[2017-07-22 07:10] LABS: ANION GAP 6 (5-19); BLOOD UREA NITROGEN 6 mg/dL (7-20); CALCIUM 7.7 mg/dL (8.4-10.2); CARBON DIOXIDE 27 mmol/L (22-30); CHLORIDE 104 mmol/L (98-107); GLUCOSE 99 mg/dL (75-110); POTASSIUM 3.6 mmol/L (3.6-5.0); SODIUM 136.8 mmol/L (137-145)
[2017-07-22] MEDS: FLUTICASONE NASAL SPRAY 50 MCG/SPRY 120 SPRAY/16 GM NASL SCH (09:19)
[2017-07-22] MEDS: LORATADINE/PSEUDOEPHEDRINE SUL 10-240 MG TAB.SR.24H PO SCH (09:19)
[2017-07-22] MEDS: ENOXAPARIN SODIUM INJ 40 MG/0.4 ML DISP.SYRIN SUBCUT SCH (18:44)
--- NOTE | 2017-07-22 21:28 | PDOC PROGRESS REPORT ---
Subjective Progress Note for:: 07/22/17 Subjective:: POD #4 s/p right hemicolectomy for inflammatory cecal/right adnexal mass Patient feels a bit fatigued today. Tolerating a regular diet Had a regular bowel movement today No fever Reason For Visit: PERITONITIS Physical Exam Vital Signs: Temp Pulse Resp BP Pulse Ox 98.4 F 93 16 138/66 H 93 07/22/17 08:01 07/22/17 08:01 07/22/17 08:01 07/22/17 08:01 07/22/17 08:01 Intake & Output 07/21/17 07/22/17 07/23/17 06:59 06:59 06:59 Intake Total 1623 2465 1041 Output Total 340 30 Balance 1283 2435 1041 Weight 78.9 kg General appearance: PRESENT: no acute distress, well-developed, well-nourished Head exam: PRESENT: atraumatic, normocephalic Eye exam: PRESENT: conjunctiva pink, EOMI, PERRLA. ABSENT: scleral icterus Ear exam: PRESENT: normal external ear exam Neck exam: ABSENT: carotid bruit, JVD, lymphadenopathy, thyromegaly Respiratory exam: PRESENT: clear to auscultation stephen. ABSENT: rales, rhonchi, wheezes Cardiovascular exam: PRESENT: RRR. ABSENT: diastolic murmur, rubs, systolic murmur GI/Abdominal exam: PRESENT: normal bowel sounds, soft, other - midline incision is clean and dry; DOYLE with serous drainage about 15ml. ABSENT: distended, guarding, mass, organolmegaly, rebound, tenderness Neurological exam: PRESENT: alert, awake, oriented to person, oriented to place , oriented to time, oriented to situation, CN II-XII grossly intact. ABSENT: motor sensory deficit Results Laboratory Results: 07/22/17 06:02 07/22/17 06:02 07/22/17 07/22/17 06:02 06:02 WBC 11.4 H RBC 3.34 L Hgb 9.4 L Hct 27.8 L MCV 83 MCH 28.1 MCHC 33.8 RDW 13.7 Plt Count 555 H Sodium 136.8 L Potassium 3.6 Chloride 104 Carbon Dioxide 27 Anion Gap 6 BUN 6 L Creatinine 0.46 L Est GFR ( Amer) > 60 Est GFR (Non-Af Amer) > 60 Glucose 99 Calcium 7.7 L Impressions: Abdomen/Pelvis CT 07/18/17 15:23 IMPRESSION: Findings consistent with a small bowel obstruction as noted above. Complex mass is identified in the right lower quadrant as noted above which appears to involve the cecum and appendix. The appearance would suggest an infectious or inflammatory process as noted above. Possibility of an underlying cecal neoplasm cannot be excluded. Clinical correlation is recommended. Other findings as noted above Chest X-Ray 07/21/17 06:00 IMPRESSION: MINIMAL BASILAR ATELECTASIS. Assessment & Plan - Diagnosis (2) Peritonitis (acute) generalized Is this a current diagnosis for this admission?: Yes - Plan Summary Plan Summary: The DOYLE drain was removed The patient will be discharged home tomorrow.
[2017-07-22] MEDS: LEVOFLOXACIN 500 MG/D5W RTU 500 MG/100 ML RTUPB IV SCH (21:49)
[2017-07-23] MEDS: METRONIDAZOLE 500 MG/NS RTU 100 ML IV SCH ×2 (05:24→12:51)
[2017-07-23] MEDS: LORATADINE/PSEUDOEPHEDRINE SUL 10-240 MG TAB.SR.24H PO SCH (09:39)
[2017-07-23] MEDS: FLUTICASONE NASAL SPRAY 50 MCG/SPRY 120 SPRAY/16 GM NASL SCH (09:39)
[2017-07-23 13:40] VITALS: BP 132/64
--- NOTE | 2017-07-23 13:41 | PDOC DISCHARGE SUMMARY ---
General - Admit/Disc Date/PCP Admission Date/Primary Care Provider: 07/18/17 20:09 Discharge Date: 07/23/17 - Discharge Diagnosis (2) Peritonitis (acute) generalized Is this a current diagnosis for this admission?: Yes - Additional Information Resuscitation Status: Full Code Discharge Diet: Regular Discharge Activity: No Lifting Over 10 Pounds, No Lifting/Push/Pulling, No tub bath, Walk Frequently Prescriptions: Docusate Sodium [Colace 100 mg Capsule] 100 mg PO BID #60 capsule Hydrocodone/Acetaminophen [[place] 5-325 mg Tablet] 1 tab PO Q4HP PRN #40 tablet PRN Reason: Levofloxacin 500 mg PO DAILY #10 tablet Metronidazole [Flagyl 500 mg Tablet] 500 mg PO TID #30 tablet Home Medications: Fluticasone Propionate [Flonase Nasal Oxford 50 Mcg/[place] 16 gm] 2 spray NASL DAILY 07/18/17 Loratadine/Pseudoephedrine [Loratadine-D 24Hr Tablet] 1 tab PO DAILY 07/18/17 Olopatadine HCl [Pataday] 1 drop OU DAILYP PRN 07/18/17 Docusate Sodium [Colace 100 mg Capsule] 100 mg PO BID #60 capsule 07/23/17 Hydrocodone/Acetaminophen [[place] 5-325 mg Tablet] 1 tab PO Q4HP PRN #40 tablet 07/23/17 Levofloxacin 500 mg PO DAILY #10 tablet 07/23/17 Metronidazole [Flagyl 500 mg Tablet] 500 mg PO TID #30 tablet 07/23/17 History of Present Illness History of Present Illness: NATALEE ANDERSON is a 57 year old female who was admitted 5 days ago with peritonitis and CT evidence of a right lolwer quadrant intraperitoneal mass. Hospital Course Hospital Course: She was taken to the oprating room and had a right hemicolectomy with excisiomn of the right adnexa which was part of the inflammatory mass. A primary anastomosis was fashioned. She was extubated in the ICU the mormning after surgery as the surgery was done overnight. She had fluid boluses for reduced urinary output on the opday. She was commenced on a clear liquid diet on postop day 1 and has been doing well. She had regular bowel movements by postop day 2. Diet has been advanced to regular which she is tolerating. She has been ambulant. Her DOYLE drain was only draining small amounts <20ml of serous drainage and was removed yesterday. She is being discharged home. Will follow up tomorrow with her primary surgeon, Dr Montgomery. Physical Exam Vital Signs: Temp Pulse Resp BP Pulse Ox 98.0 F 106 H 16 138/67 H 96 07/23/17 11:10 07/23/17 11:10 07/23/17 11:10 07/23/17 11:10 07/23/17 11:10 Intake & Output 07/22/17 07/23/17 07/24/17 06:59 06:59 06:59 Intake Total 2465 1725 Output Total 30 Balance 2435 1725 Weight 77.3 kg General appearance: PRESENT: no acute distress, well-developed, well-nourished Head exam: PRESENT: atraumatic, normocephalic Eye exam: PRESENT: conjunctiva pink, EOMI, PERRLA. ABSENT: scleral icterus Ear exam: PRESENT: normal external ear exam Neck exam: ABSENT: carotid bruit, JVD, lymphadenopathy, thyromegaly Respiratory exam: PRESENT: clear to auscultation stephen. ABSENT: rales, rhonchi, wheezes Cardiovascular exam: PRESENT: RRR. ABSENT: diastolic murmur, rubs, systolic murmur GI/Abdominal exam: PRESENT: normal bowel sounds, soft, other - midline incision is covered with transparent dressing, is clean, dry, intact. DOYLE site is clean, no drainage.. ABSENT: distended, guarding, mass, organolmegaly, rebound, tenderness Neurological exam: PRESENT: alert, awake, oriented to person, oriented to place , oriented to time, oriented to situation, CN II-XII grossly intact. ABSENT: motor sensory deficit Psychiatric exam: PRESENT: appropriate affect, normal mood. ABSENT: homicidal ideation, suicidal ideation Results Laboratory Results: 07/22/17 06:02 07/22/17 06:02 Impressions: Abdomen/Pelvis CT 07/18/17 15:23 IMPRESSION: Findings consistent with a small bowel obstruction as noted above. Complex mass is identified in the right lower quadrant as noted above which appears to involve the cecum and appendix. The appearance would suggest an infectious or inflammatory process as noted above. Possibility of an underlying cecal neoplasm cannot be excluded. Clinical correlation is recommended. Other findings as noted above Chest X-Ray 07/21/17 06:00 IMPRESSION: MINIMAL BASILAR ATELECTASIS. Plan Discharge Plan: ok to shower no tub baths x 3weeks continue regular diet F/U x [address] Montgomery Prescriptions - levofloxacin 500mg daily x 10 days - flagyl 500mg po tid #30 - norco 5/325 1 tab po q4hr prn pain #40 - colace 100 mg po bid #30 Time Spent: Greater than 30 Minutes
== END 2017-07-23 16:03 | disposition home or self-care (01) | DRG 853 ==
LOC: ER 13:46 → UNDOADMIN 20:09 → EH 20:09 → 4N 22:00 → ICU 07-19 05:29 → 4N 07-19 05:29 → 4S 07-20 22:02
PROVIDERS: ADMIT Surgery; ATTEND Surgery
PROC: 0UB00ZZ Excision of Right Ovary, Open Approach (ICD-10-PCS; 2017-07-19)
PROC: 0UB50ZZ Excision of Right Fallopian Tube, Open Approach (ICD-10-PCS; 2017-07-19)
PROC: 5A1935Z Respiratory Ventilation, Less than 24 Consecutive Hours (ICD-10-PCS; 2017-07-19)
PROC: 0DTF0ZZ Resection of Right Large Intestine, Open Approach (ICD-10-PCS; principal; 2017-07-19 02:00)
DX: A41.9 Sepsis, unspecified organism (principal); K65.0 Generalized (acute) peritonitis; K56.50 Intestinal adhesions [bands], unspecified as to partial versus complete obstruction; K56.7 Ileus, unspecified; K66.0 Peritoneal adhesions (postprocedural) (postinfection); R19.03 Right lower quadrant abdominal swelling, mass and lump; K80.80 Other cholelithiasis without obstruction; Z88.2 Allergy status to sulfonamides
CPT/HCPCS: 36415; 71045; 74177; 790; 80048; 80053; 81001; 82803; 83690; 83735; 85025; 85027; 88307; 88309; 94002; 94799; 96361; 96374; 96375; 96376; 99285; J0131; J0330; J1100; J1170; J1650; J1940; J1956; J2250; J2270; J2405; J2704; J2765; J3010; J3490; J7030; J7120

== ENCOUNTER → 2017-07-24 | Outpatient (CLI) | payer OTHER | LOC: OD 12:24 | PROVIDERS: ATTEND Surgery | DX: C18.2 Malignant neoplasm of ascending colon (principal) | CPT/HCPCS: 36415; 82378 ==

== ENCOUNTER 2017-08-04 17:00 | Emergency (ER) | payer OTHER ==
[2017-08-04 17:12] VITALS: BP 138/62
--- NOTE | 2017-08-04 18:52 | ER Document Report ---
ED General - General Chief Complaint: Post Surgical Pain Stated Complaint: BACK PAIN Time Seen by Provider: 08/04/17 18:31 Notes: Patient presents with concern of right sided trapezius and lower back pain that is sharp in nature and intermittent. Patient has been getting and out of the car recently and developed sharp pain in her trapezius and lower back on the right approximately 4 PM today. She took a Tylenol and the pain is subsided. She states that she also had similar pain while sleeping and it was positional in nature and was alleviated with certain position changes. She denies any recent fevers cough congestion chest pain or abdominal pain or dysuria. Denies any nausea vomiting or diarrhea. She did have a bowel resection approximately 2 weeks ago but has not had any complications with that and is to see her surgeon tomorrow for routine checkup. On exam, patient appears to have tight trapezius muscles that are tense and she states that massaging the muscles makes it feel better. She does not have any crepitus or induration or step-offs of her parasternal lower back. She is able to ambulate without difficulty. TRAVEL OUTSIDE OF THE [place] IN LAST 30 DAYS: No - Related Data Allergies/Adverse Reactions: Sulfa (Sulfonamide Antibiotics) Allergy (Verified 08/04/17 17:01) Past Medical History - Social History Smoking Status: Former Smoker Chew tobacco use (# tins/day): No Frequency of alcohol use: None Drug Abuse: None Family History: Reviewed & Not Pertinent Patient has suicidal ideation: No Patient has homicidal ideation: No Renal/ Medical History: Denies: Hx Peritoneal Dialysis Past Surgical History: Reports: Hx Abdominal Surgery, Hx Section Review of Systems - Review of Systems Constitutional: No symptoms reported EENT: No symptoms reported Cardiovascular: No symptoms reported Respiratory: No symptoms reported Gastrointestinal: No symptoms reported Genitourinary: No symptoms reported Female Genitourinary: No symptoms reported Musculoskeletal: No symptoms reported, See HPI, Other - Right trapezius pain and right lower lumbar pain Skin: No symptoms reported Hematologic/Lymphatic: No symptoms reported Neurological/Psychological: No symptoms reported Physical Exam - Vital signs Vitals: Temp Pulse BP Pulse Ox 98.4 F 110 H 138/62 H 95 08/04/17 17:11 08/04/17 17:11 08/04/17 17:11 08/04/17 17:11 - General General appearance: Appears well, Alert - HEENT Head: Normocephalic, Atraumatic - Respiratory Respiratory status: No respiratory distress Chest status: Nontender Breath sounds: Normal Chest palpation: Normal - Cardiovascular Rhythm: Regular Heart sounds: Normal auscultation Murmur: No - Abdominal Inspection: Other - Postsurgical scar midline of abdomen with Steri-Strips in place that is well appearing with no signs of infection Bowel sounds: Normal - Back Back: Other - tense right trapezius muscles, no acute findings of lower back were pain was located per patient - Neurological Neuro grossly intact: Yes Cognition: Normal Orientation: AAOx4 Course - Re-evaluation Re-evalutation: 08/04/17 18:51 Patient well-appearing in no acute distress states that pain has been relieved with Tylenol. She states the pain has been positional in nature. She denies any recent fevers or illnesses to suggest infection. Patient symptoms as muscle spasms and will provide Valium. Discussed strict return precautions if pain were to worsen and not be alleviated with Tylenol or Valium to return to emergency department for further evaluation. 08/04/17 18:52 Patient states that pain felt more superficial in nature and was positional, she has no abdominal pain to suggest that her pain is due to postsurgical complications. 08/04/17 18:56 - Vital Signs Vital signs: Temp Pulse Resp BP Pulse Ox 98.4 F 99 18 138/62 H 100 08/04/17 17:11 08/04/17 18:56 08/04/17 18:56 08/04/17 17:11 08/04/17 18:56 Discharge - Discharge Clinical Impression: Muscle spasm Condition: Good Disposition: HOME, SELF-CARE Instructions: Muscle Relaxers ([facility]) Additional Instructions: Please take medications as prescribed and return to the emergency department if symptoms are not alleviated or worsen. Please follow-up with your surgeon tomorrow for your previously scheduled follow -up appointment. Prescriptions: Diazepam [Valium 5 mg Tablet] 5 mg PO TID PRN #15 tablet PRN Reason:
== END 2017-08-04 19:02 | disposition home or self-care (01) ==
LOC: ER 17:00
DX: M62.838 Other muscle spasm (principal); M54.5 Low back pain; Z98.890 Other specified postprocedural states; Z88.2 Allergy status to sulfonamides; Z87.891 Personal history of nicotine dependence
CPT/HCPCS: 99283

== ENCOUNTER → 2017-09-01 | Outpatient (CLI) | payer OTHER ==
--- NOTE | 2017-09-03 09:10 | RADIOLOGY REPORT (SQ) ---
EXAM DESCRIPTION: PET CT SKULL/THIGH COMPLETED DATE/TIME: 09/02/2017 6:37 pm REASON FOR STUDY: COLON CA (C18.2) C18.2 MALIGNANT NEOPLASM OF ASCENDING COLON COMPARISON: None. RADIONUCLIDE AND DOSE: 9.3 mCi F18 FDG The route of agent administration: Intravenous FASTING BLOOD SUGAR: 76 mg/dl CONTRAST TYPE AND DOSE: No CT contrast given. TECHNIQUE: Blood glucose level was verified. Above dose of FDG was injected intravenously. 2-D seg mented attenuation correction images were obtained from the base of the skull to the midthighs. Nonc ontrast CT images were obtained for attenuation correction and fusion with emission images. CT image s were performed without oral or intravenous contrast and are not sensitive for parenchymal lesions. A series of overlapping emission PET images were obtained. [facility] by the radiologist. Images stored on PACS. LIMITATIONS: None. FINDINGS: HEAD AND NECK: No areas of abnormal metabolic activity in the soft tissues of the head and neck. CHEST: No areas of abnormal metabolic activity in the chest. ABDOMEN AND PELVIS: No areas of abnormal metabolic activity in the abdomen or pelvis. Expected physi ologic activity is present in the genitourinary system and bowel. PROXIMAL LOWER EXTREMITIES: No areas of abnormal metabolic activity in the soft tissues of the lower extremities. BONES: No abnormal metabolic activity in the visualized skeleton. ADDITIONAL CT FINDINGS: Anastomosis status post right hemicolectomy. Non hypermetabolic pleural-base d nodule right lower lobe measuring about 1.5 cm. OTHER: No other significant findings. IMPRESSION: No evidence of metastatic disease. TECHNICAL DOCUMENTATION: JOB ID: [id number] [employer]- All Rights Reserved Reading location - IP/workstation name: [facility]
== END ==
LOC: RAD 17:08
PROVIDERS: ATTEND Internal Medicine
DX: C18.2 Malignant neoplasm of ascending colon (principal)
CPT/HCPCS: 78815; A9552

== ENCOUNTER → 2017-09-24 | Outpatient (CLI) | payer OTHER | LOC: OD 16:45 | PROVIDERS: ATTEND Surgery | DX: C18.9 Malignant neoplasm of colon, unspecified (principal) | CPT/HCPCS: 36415; 82378 ==

== ENCOUNTER → 2018-03-28 | Outpatient (CLI) | payer OTHER ==
--- NOTE | 2018-03-28 16:49 | WOMENS IMAGING REPORT ---
EXAM DESCRIPTION: 3D SCREENING MAMMO BILAT COMPLETED DATE/TIME: 03/28/2018 1:38 pm REASON FOR STUDY: BILATERAL SCREENING MAMMO 3D /Z12.31 Z12.31 ENCNTR SCREEN MAMMOGRAM FOR MALIGNANT NEOPLASM OF [place] COMPARISON: 12/20/2016 and 11/28/2015. TECHNIQUE: Standard craniocaudal and mediolateral oblique views of each breast recorded using digita l acquisition and breast tomosynthesis. LIMITATIONS: None. FINDINGS: No masses, calcifications or architectural distortion. No areas of suspicion. Read with the assistance of CAD. .[facility] - R2 Cenova Version 1.3 .[facility] - R2 Cenova Version 1.3 .[facility] - R2 Cenova Version 2.4 .[facility] [place] R2 Cenova Version 2.4 .[facility] - R2 Edge [employer]uer Version 9.2 IMPRESSION: NORMAL MAMMOGRAM. BIRADS 1. BREAST DENSITY: b. There are scattered areas of fibroglandular density. BIRAD: 1 NEGATIVE RECOMMENDATION: ROUTINE SCREENING COMMENT: The patient has been notified of the results by letter per SA requirements. Additional no tification policies are in place for contacting patient with suspicious or incomplete findings. Quality ID #[id number]: The [employer] recommends an annual screening mammogram for women aged 40 years or over. This facility utilizes a reminder system to ensure that all patients receive reminder letters, and/or direct phone calls for appointments. This includes reminders for routine scr eening mammograms, diagnostic mammograms, or other Breast Imaging Interventions when appropriate. Th is patient will be placed in the appropriate reminder system. The [employer] (ACR) has developed recommendations for screening MRI of the breast s in certain patient populations, to be used in conjunction with mammography. Breast MRI surveillanc e may be appropriate for women with more than 20% lifetime risk of developing breast cancer as deter mined by genetic testing, significant family history of the disease, or history of mantle radiation f or Hodgkins Disease. ACR Practice Guidelines 2008. DBT Technology DBT is a type of tomographic mammography. With conventional mammography, overlapping breast tissue ma y make lesions difficult to detect, even with good compression. DBT uses an x-ray tube that rotates a round the breast, taking images at different angles. These images are then combined to create thin sl ices of the breast that the radiologist can view as a 3D reconstruction. The [employer] unit can perform full-field digital mammograms (2D imaging); or DBT (3D imaging); or both, in a combination mode that quickly performs both the mammogram and the tomosynthesis scan while the breast is still compressed. PQRS 6045F: Fluoroscopic imaging is not utilized for breast tomosynthesis. TECHNICAL DOCUMENTATION: FINDING NUMBER: (1) ASSESSMENT: (1) JOB ID: [id number] [employer]- All Rights Reserved Reading location - IP/workstation name: [facility]
== END ==
LOC: WI 13:03
PROVIDERS: ATTEND Nurse Practitioner
DX: Z12.31 Encounter for screening mammogram for malignant neoplasm of breast (principal)
CPT/HCPCS: 77063; 77067

== ENCOUNTER → 2018-09-29 | Outpatient (CLI) | payer OTHER ==
--- NOTE | 2018-09-29 10:26 | RADIOLOGY REPORT (SQ) ---
EXAM DESCRIPTION: CT CHEST WITH; CT ABD/PELVIS WITH IV ONLY COMPLETED DATE/TIME: 09/29/2018 9:47 am REASON FOR STUDY: COLON CA (C18.2) C18.2 MALIGNANT NEOPLASM OF ASCENDING COLON COMPARISON: PET-CT 09/01/2017 CT abdomen pelvis 07/18/2017 CONTRAST TYPE AND DOSE: contrast/concentration: Isovue 350.00 mg/ml; Total Contrast Delivered: 81.0 ml; Total Saline Delivered: 68.0 ml RENAL FUNCTION: Creatinine 0.5 TECHNIQUE: CT scan of the chest performed using helical scanning technique with dynamic intravenous contrast injection. Images reviewed with lung, soft tissue and bone windows. Reconstructed coronal a nd sagittal MPR images reviewed. All images stored on PACS. CT scan of the abdomen and pelvis performed with intravenous and with oral contrastusing helical scan kamala technique with dynamic intravenous contrast injection. Images reviewed with lung, soft tissue a nd bone windows. Reconstructed coronal and sagittal MPR images reviewed. Delayed images for evaluat ion of the urinary system also acquired and evaluated. All images stored on PACS. All CT scanners at this facility use dose modulation, iterative reconstruction, and/or weight based d osing when appropriate to reduce radiation dose to as low as reasonably achievable (ALARA). [facility]: Dose Right [facility]: CareDose [facility]: Dose Right [facility]: Teradose 4D [facility]: Smart Technologies RADIATION DOSE: CT Rad equipment meets quality standard of care and radiation dose reduction techniq ues were employed. CTDIvol: 4.8 - 6.7 mGy. DLP: 839 mGy-cm. . LIMITATIONS: None. FINDINGS: CHEST: LUNGS AND PLEURA: Minimal atelectasis or scarring in the right posterior costophrenic sulcus is prese nt, left 10th on previous studies. No findings worrisome for lung metastatic lesion. No acute infil trates. No pleural effusion or pneumothorax. HILAR AND MEDIASTINAL STRUCTURES: No identified masses or abnormal nodes. HEART AND VASCULAR STRUCTURES: No aneurysm or dissection. No central pulmonary emboli. No pericardi al effusion. HARDWARE: None. THYROID AND OTHER SOFT TISSUES: No masses. No adenopathy. BONES: No significant finding. OTHER: No other significant finding. ABDOMEN AND PELVIS: LIVER: Normal size. No masses. No dilated ducts. SPLEEN: Normal size. No focal lesions. PANCREAS: No masses. No significant calcifications. No adjacent inflammation or peripancreatic fluid collections. Pancreatic duct not dilated. GALLBLADDER: No identified stones by CT criteria. No inflammatory changes to suggest cholecystitis. ADRENAL GLANDS: No significant masses or asymmetry. RIGHT KIDNEY AND URETER: No solid masses. No significant calcification. No hydronephrosis or hydroure ter. LEFT KIDNEY AND URETER: No solid masses. No significant calcification. No hydronephrosis or hydrouret er. AORTA AND VESSELS: No aneurysm. No dissection. Renal arteries, SMA, celiac without stenosis. RETROPERITONEUM: No retroperitoneal adenopathy, hemorrhage or masses. BOWEL AND PERITONEAL CAVITY: Post right hemicolectomy. Patient drank oral contrast. No CT evidence of bowel obstruction. No free air or fluid. No peritoneal implants. APPENDIX: Surgically absent ABDOMINAL WALL: No masses. No hernias. PELVIS: No mass or free fluid. Normal bladder. Post right oophorectomy. 3 cm cyst left ovary. Nor mal size uterus BONES: No significant or acute findings. OTHER: No other significant finding. IMPRESSION: Post right hemicolectomy and right salpingo-oophorectomy and appendectomy. No CT evidence of metastatic disease to the chest abdomen or pelvis given history of colon cancer TECHNICAL DOCUMENTATION: JOB ID: [id number] Quality ID # [id number]: Final reports with documentation of one or more dose reduction techniques (e.g., Au tomated exposure control, adjustment of the mA and/or kV according to patient size, use of iterative reconstruction technique) 2010 [employer]- All Rights Reserved Reading location - IP/workstation name: [email or web address]
== END ==
LOC: RAD 09:00
PROVIDERS: ATTEND Physician Assistant Medical
DX: C18.2 Malignant neoplasm of ascending colon (principal)
CPT/HCPCS: 71260; 74177; 82565

== ENCOUNTER → 2019-05-06 | Outpatient (CLI) | payer OTHER ==
--- NOTE | 2019-05-06 12:41 | WOMENS IMAGING REPORT ---
EXAM DESCRIPTION: 3D SCREENING MAMMO BILAT COMPLETED DATE/TIME: 05/06/2019 11:06 am REASON FOR STUDY: Z12.31 SCREENING MAMMO Z12.31 ENCNTR SCREEN MAMMOGRAM FOR MALIGNANT NEOPLASM OF B RE COMPARISON: [id number] EXAM PARAMETERS: Views: Standard craniocaudal and mediolateral oblique views of each breast recorded using digital acquisition and breast tomosynthesis. Read with the assistance of CAD. .[facility] - [employer]er Version 9.2 LIMITATIONS: None. FINDINGS: No suspicious masses, suspicious calcifications or architectural distortion. No areas of c oncern. IMPRESSION: NEGATIVE MAMMOGRAM. BIRADS 1. BREAST DENSITY: b. There are scattered areas of fibroglandular density. BIRAD: ASSESSMENT: 1 NEGATIVE RECOMMENDATION: ROUTINE SCREENING COMMENT: The patient has been notified of the results by letter per MQSA requirements. Additional no tification policies are in place for contacting patient with suspicious or incomplete findings. Quality ID #225: The [employer] recommends an annual screening mammogram for women aged 40 years or over. This facility utilizes a reminder system to ensure that all patients receive reminder letters, and/or direct phone calls for appointments. This includes reminders for routine scr eening mammograms, diagnostic mammograms, or other Breast Imaging Interventions when appropriate. Th is patient will be placed in the appropriate reminder system. TECHNICAL DOCUMENTATION: FINDING NUMBER: (1) ASSESSMENT: (1) JOB ID: [id number] [employer]- All Rights Reserved Reading location - IP/workstation name: [email or web address]
== END ==
LOC: WI 10:25
PROVIDERS: ATTEND Nurse Practitioner
DX: Z12.31 Encounter for screening mammogram for malignant neoplasm of breast (principal)
CPT/HCPCS: 77063; 77067

== ENCOUNTER → 2019-09-22 | Outpatient (CLI) | payer OTHER ==
--- NOTE | 2019-09-22 08:51 | RADIOLOGY REPORT (SQ) ---
EXAM DESCRIPTION: CT CHEST WITH; CT ABD/PELVIS WITH IV ORAL IMAGES COMPLETED DATE/TIME: 09/22/2019 8:30 am REASON FOR STUDY: COLON CA (C18.2) C18.2 MALIGNANT NEOPLASM OF ASCENDING COLON CONTRAST TYPE AND DOSE: contrast/concentration: Isovue 350.00 mg/ml; Total Contrast Delivered: 89.0 ml; Total Saline Delivered: 70.0 ml RENAL FUNCTION: Creatinine 0.6 COMPARISON: CT dated 09/29/2018, prior PET-CT dated 09/01/2017 TECHNIQUE: CT scan of the chest performed using helical scanning technique with dynamic intravenous contrast injection. Images reviewed with lung, soft tissue and bone windows. Reconstructed coronal a nd sagittal MPR images reviewed. All images stored on PACS. All CT scanners at this facility use dose modulation, iterative reconstruction, and/or weight based d osing when appropriate to reduce radiation dose to as low as reasonably achievable (ALARA). [facility]: Dose Right [facility]: CareDose [facility]: Dose Right [facility]: Teradose 4D [facility]: [employer] Cardio RADIATION DOSE: . LIMITATIONS: None. FINDINGS: AXILLAE: No adenopathy. CHEST WALL: No masses. No subcutaneous air. LUNGS: There is a subpleural nodule measuring 4.9 mm in the right lower lobe. This is best demonstra wood on series 6, image 84. This measured 4.2 mm on previous exam. On prior PET the nodule measured 3.1 mm. Continued surveillance is recommended. Persistent scarring or atelectasis in the right base stable from prior studies. No other suspicious findings. PLEURA: No effusions. No calcifications. THYROID: No masses or significant asymmetry. HILAR AND MEDIASTINAL STRUCTURES: No identified masses or abnormal nodes. AORTA AND GREAT VESSELS: No aneurysm. No dissection. PULMONARY ARTERIES: No identified pulmonary emboli. Study not optimized for the pulmonary arteries. HEART: No pericardial effusion. HARDWARE AND LIFELINES: None. BONES: No significant finding. OTHER: No other significant finding. IMPRESSION: 4.9 mm subpleural nodule as described. Continued surveillance is recommended. COMPARISON: None. RADIATION DOSE: mGy. TECHNIQUE: CT scan of the abdomen and pelvis performed with intravenous and oral contrast using brad seng scanning technique with dynamic intravenous contrast injection. Images reviewed with lung, soft tissue and bone windows. Reconstructed coronal and sagittal MPR images reviewed. Delayed images for evaluation of the urinary system also acquired and evaluated. All images stored on PACS. All CT scanners at this facility use dose modulation, iterative reconstruction, and/or weight based d osing when appropriate to reduce radiation dose to as low as reasonably achievable (ALARA). [facility]: Dose Right [facility]: SureCare [facility]: Dose Right [facility]: Teradose 4D [facility]: [employer] Cardio FINDINGS: LIVER: Heterogeneous mass in the right lobe of liver. This measures 3.7 cm in diameter an d is consistent with neoplasm. SPLEEN: Normal size. No focal lesions. PANCREAS: No masses. No significant calcifications. No adjacent inflammation or peripancreatic flui d collections. Pancreatic duct not dilated. GALLBLADDER: Gallstones are again noted. ADRENAL GLANDS: No significant masses or asymmetry. RIGHT KIDNEY AND URETER: No solid masses. No significant calcifications. No hydronephrosis or hyd roureter. LEFT KIDNEY AND URETER: No solid masses. No significant calcifications. No hydronephrosis or hydr oureter. AORTA AND VESSELS: No aneurysm. No dissection. Renal arteries, SMA, celiac without stenosis. RETROPERITONEUM: No retroperitoneal adenopathy, hemorrhage or masses. LARGE AND SMALL BOWEL: No dilatation. No masses. No wall thickening. APPENDIX: Surgically absent. ABDOMINAL WALL: No hernia or masses. PERITONEAL CAVITY: No free air. No free fluid. No peritoneal implants or masses. PELVIS: Stable approximately 3.3 cm left ovarian cyst. BONES: No significant or acute findings. OTHER: No other significant finding. IMPRESSION: 3.7 cm lesion in the right lobe of liver consistent with metastatic disease. TECHNICAL DOCUMENTATION: JOB ID: [id number] Quality ID # 436: Final reports with documentation of one or more dose reduction techniques (e.g., Au tomated exposure control, adjustment of the mA and/or kV according to patient size, use of iterative reconstruction technique) 2010 [employer]- All Rights Reserved Reading location - IP/workstation name: [email or web address]
--- NOTE | 2019-09-22 08:51 | RADIOLOGY REPORT (SQ) ---
EXAM DESCRIPTION: CT CHEST WITH; CT ABD/PELVIS WITH IV ORAL IMAGES COMPLETED DATE/TIME: 09/22/2019 8:30 am REASON FOR STUDY: COLON CA (C18.2) C18.2 MALIGNANT NEOPLASM OF ASCENDING COLON CONTRAST TYPE AND DOSE: contrast/concentration: Isovue 350.00 mg/ml; Total Contrast Delivered: 89.0 ml; Total Saline Delivered: 70.0 ml RENAL FUNCTION: Creatinine 0.6 COMPARISON: CT dated 09/29/2018, prior PET-CT dated 09/01/2017 TECHNIQUE: CT scan of the chest performed using helical scanning technique with dynamic intravenous contrast injection. Images reviewed with lung, soft tissue and bone windows. Reconstructed coronal a nd sagittal MPR images reviewed. All images stored on PACS. All CT scanners at this facility use dose modulation, iterative reconstruction, and/or weight based d osing when appropriate to reduce radiation dose to as low as reasonably achievable (ALARA). [facility]: Dose Right [facility]: CareDose [facility]: Dose Right [facility]: Teradose 4D [facility]: OANDA RADIATION DOSE: . LIMITATIONS: None. FINDINGS: AXILLAE: No adenopathy. CHEST WALL: No masses. No subcutaneous air. LUNGS: There is a subpleural nodule measuring 4.9 mm in the right lower lobe. This is best demonstra wood on series 6, image 84. This measured 4.2 mm on previous exam. On prior PET the nodule measured 3.1 mm. Continued surveillance is recommended. Persistent scarring or atelectasis in the right base stable from prior studies. No other suspicious findings. PLEURA: No effusions. No calcifications. THYROID: No masses or significant asymmetry. HILAR AND MEDIASTINAL STRUCTURES: No identified masses or abnormal nodes. AORTA AND GREAT VESSELS: No aneurysm. No dissection. PULMONARY ARTERIES: No identified pulmonary emboli. Study not optimized for the pulmonary arteries. HEART: No pericardial effusion. HARDWARE AND LIFELINES: None. BONES: No significant finding. OTHER: No other significant finding. IMPRESSION: 4.9 mm subpleural nodule as described. Continued surveillance is recommended. COMPARISON: None. RADIATION DOSE: mGy. TECHNIQUE: CT scan of the abdomen and pelvis performed with intravenous and oral contrast using brad seng scanning technique with dynamic intravenous contrast injection. Images reviewed with lung, soft tissue and bone windows. Reconstructed coronal and sagittal MPR images reviewed. Delayed images for evaluation of the urinary system also acquired and evaluated. All images stored on PACS. All CT scanners at this facility use dose modulation, iterative reconstruction, and/or weight based d osing when appropriate to reduce radiation dose to as low as reasonably achievable (ALARA). [facility]: Dose Right [facility]: SureCare [facility]: Dose Right [facility]: Teradose 4D [facility]: OANDA FINDINGS: LIVER: Heterogeneous mass in the right lobe of liver. This measures 3.7 cm in diameter an d is consistent with neoplasm. SPLEEN: Normal size. No focal lesions. PANCREAS: No masses. No significant calcifications. No adjacent inflammation or peripancreatic flui d collections. Pancreatic duct not dilated. GALLBLADDER: Gallstones are again noted. ADRENAL GLANDS: No significant masses or asymmetry. RIGHT KIDNEY AND URETER: No solid masses. No significant calcifications. No hydronephrosis or hyd roureter. LEFT KIDNEY AND URETER: No solid masses. No significant calcifications. No hydronephrosis or hydr oureter. AORTA AND VESSELS: No aneurysm. No dissection. Renal arteries, SMA, celiac without stenosis. RETROPERITONEUM: No retroperitoneal adenopathy, hemorrhage or masses. LARGE AND SMALL BOWEL: No dilatation. No masses. No wall thickening. APPENDIX: Surgically absent. ABDOMINAL WALL: No hernia or masses. PERITONEAL CAVITY: No free air. No free fluid. No peritoneal implants or masses. PELVIS: Stable approximately 3.3 cm left ovarian cyst. BONES: No significant or acute findings. OTHER: No other significant finding. IMPRESSION: 3.7 cm lesion in the right lobe of liver consistent with metastatic disease. TECHNICAL DOCUMENTATION: JOB ID: [id number] Quality ID # 436: Final reports with documentation of one or more dose reduction techniques (e.g., Au tomated exposure control, adjustment of the mA and/or kV according to patient size, use of iterative reconstruction technique) 2010 [employer]- All Rights Reserved Reading location - IP/workstation name: [email or web address]
== END ==
LOC: RAD 07:46
PROVIDERS: ATTEND Internal Medicine
DX: C18.2 Malignant neoplasm of ascending colon (principal)
CPT/HCPCS: 71260; 74177; 82565

== ENCOUNTER → 2019-09-29 | Outpatient (CLI) | payer OTHER | LOC: RAD 07:57 | PROVIDERS: ATTEND Internal Medicine | DX: C18.2 Malignant neoplasm of ascending colon (principal) | CPT/HCPCS: 78815; A9552 ==

== ENCOUNTER 2019-10-07 08:50 | Day surgery (SDC) | payer OTHER ==
[2019-10-07 09:19] LABS: HEMATOCRIT 40.8 % (36.0-47.0); HEMOGLOBIN 14.4 g/dL (12.0-15.5); MEAN CORPUSCULAR HEMOGLOBIN 30.4 pg (27.0-33.4); MEAN CORPUSCULAR HGB CONC 35.4 g/dL (32.0-36.0); MEAN CORPUSCULAR VOLUME 86 fl (80-97); PLATELET COUNT 322 10^3/uL (150-450); RED BLOOD COUNT 4.75 10^6/uL (3.72-5.28); RED CELL DISTRIBUTION WIDTH 13.3 % (11.5-14.0); WHITE BLOOD COUNT 5.9 10^3/uL (4.0-10.5)
[2019-10-07 09:41] LABS: BLOOD UREA NITROGEN 12 mg/dL (7-20)
[2019-10-07 09:45] LABS: INTERNATIONAL RATION (INR) 0.93; PROTHROMBIN TIME 12.5 SEC (11.4-15.4)
[2019-10-07 09:46] LABS: PARTIAL THROMBOPLASTIN TIME 25.4 SEC (23.5-35.8)
[2019-10-07] MEDS ORDERED: FENTANYL CITRATE INJ/PF 100 MCG/2 ML AMPUL ONE (11:16)
[2019-10-07] MEDS ORDERED: MIDAZOLAM 2 MG/2 ML INJ ONE (11:16)
--- NOTE | 2019-10-07 12:51 | RADIOLOGY REPORT (SQ) ---
EXAM DESCRIPTION: CT BIOPSY LIVER; CT NEEDLE PLACEMENT IMAGES COMPLETED DATE/TIME: 10/07/2019 12:01 pm REASON FOR STUDY: hypodense inferior right hepatic lobe mass C18.2 MALIGNANT NEOPLASM OF ASCENDING COLON COMPARISON: None. TECHNIQUE: After obtaining informed consent and explaining the risks and benefits of conscious sedat ion,the patient agreed to the procedure. The patient was brought to the CT suite and was placed obliq ue supine on the CT gurney. The patient was prepped and draped in the usual sterile fashion. Axial i mages were obtained for targeting of theright lower lobe. An appropriate access site was selected. IV conscious sedation was administered and physician direction by the registered nurse using 1 milligra ms of Versed and 50 micrograms of fentanyl. Physiologic monitoring was provided before, during, and a fter sedation. The total sedation time was 30 minutes. Documentation face to face time, the performing proceduralist, spent monitoring the patient: [address] of the liver was performed to localize an approach for the targeted liver biopsy. A percutaneous site was marked. Time out was performed. After skin prep and local lidocaine for skin and deep tissue anesthesia, a coaxial biopsy needle sys tem was used to obtain several cores of tissue. These were submitted to the lab in formalin. No im mediate postprocedure complications. Total of 8.[address] fluoro was used. 132 CT Fluoroscopic images were obtained and saved to PACS. All CT scanners at this facility use dose modulation, iterative reconstruction, and/or weight based d osing when appropriate to reduce radiation dose to as low as reasonably achievable (ALARA). [facility]: Dose Right [facility]: CareDose [facility]: Dose Right [facility]: Teradose 4D [facility]: [employer] RADIATION DOSE: CT Rad equipment meets quality standard of care and radiation dose reduction techniq ues were employed. CTDIvol: 4.0 - 20.3 mGy. DLP: 523 mGy-cm. mGy. LIMITATIONS: None. FINDINGS: CT guided liver biopsy as detailed above. IMPRESSION: CT GUIDED TARGETED LIVER BIOPSY PERFORMED ABOVE. PATHOLOGY PENDING. NO IMMEDIATE C OMPLICATIONS. COMMENT: Patient medication list reviewed:Yes- Quality ID# 130:Eligible professional attests to docu menting in the medical record they obtained, updated, or reviewed the patient's current medications.. Quality ID 145: Final reports for procedures using fluoroscopy that document radiation exposure saloni mason, or exposure time and number of fluorographic images (if radiation exposure indices are not avail able) TECHNICAL DOCUMENTATION: JOB ID: [id number] Quality ID # 436: Final reports with documentation of one or more dose reduction techniques (e.g., A utomated exposure control, adjustment of the mA and/or kV according to patient size, use of iterative reconstruction technique) 2010 [employer]- All Rights Reserved Reading location - IP/workstation name: [email or web address]
[2019-10-07 14:18] VITALS: BP 139/69
== END 2019-10-07 14:00 | disposition home or self-care (01) ==
LOC: RAD 08:50
PROVIDERS: ATTEND Internal Medicine
DX: C78.7 Secondary malignant neoplasm of liver and intrahepatic bile duct (principal); C18.2 Malignant neoplasm of ascending colon
CPT/HCPCS: 36415; 84520; 82565; 85027; 85610; 85730; 88305 ×2; 77012; 47000; J2250; J3010

== ENCOUNTER 2019-10-13 13:13 | Emergency (ER) | payer OTHER ==
--- NOTE | 2019-10-13 13:26 | ER Document Report ---
ED Medical Screen (RME) - General Chief Complaint: Numbness Stated Complaint: HAND NUMBNESS/DIZZINESS Time Seen by Provider: 10/13/19 13:19 Primary Care Provider: CRISTINA URIOSTEGUI FNP [Primary Care Provider] - Follow up as needed TRAVEL OUTSIDE OF THE [place] IN LAST 30 DAYS: No - HPI Notes: 10/13/19 13:24 59-year-old female presents to the emergency room with complaints of numbness to both of her hands with numbness/tingling as well as right leg n/t that started 1130 this morning. She also reports lightheadedness, weakness and palpitations. No new medications, patient only takes Claritin-D and Flonase which she has taken for years. Reports that mother had a history of a CVA. Patient denies any prior history of numbness or tingling with lightheadedness dizziness or p alpitations. No fever chills, chest pain, shortness of breath, nausea vomiting or diarrhea. No focal neurological deficit noted on clinical examination I have greeted and performed a rapid initial assessment of this patient. A comprehensive ED assessment and evaluation of the patient, analysis of test results and completion of the medical decision making process will be conducted by additional ED providers. PHYSICAL EXAMINATION: GENERAL: Well-appearing, well-nourished and in no acute distress. HEAD: Atraumatic, normocephalic. EYES: Pupils equal round extraocular movements intact, conjunctiva are normal. NECK: Normal range of motion CV: s1, s2 regular LUNGS: No respiratory distress Musculoskeletal: Normal range of motion NEUROLOGICAL: Normal speech, normal gait. PERRLA, EOMI. Full motor and sensory function throughout. Sound Effects Technician + 2 equal bilaterally in BUE. Tongue midline. No pronator drift. No ataxia. Neck with APROM. Raises eyebrows. Strength is 5 out of 5 in bilateral upper and lower extremities equally.Speaks in full sentences. No weakness on one side. SKIN: Warm, Dry, normal turgor, no rashes or lesions noted. - Related Data Allergies/Adverse Reactions: Sulfa (Sulfonamide Antibiotics) Allergy (Verified 10/07/19 09:20) Home Medications: Claritin D. Flonase Past Medical History - Social History Frequency of alcohol use: None Drug Abuse: None - Past Medical History Cardiac Medical History: Denies: Hx Coronary Artery Disease, Hx Heart Attack, Hx Hypertension Pulmonary Medical History: Denies: Hx Asthma, Hx Bronchitis, Hx COPD, Hx Pneumonia Neurological Medical History: Denies: Hx Cerebrovascular Accident, Hx Seizures Renal/ Medical History: Denies: Hx Peritoneal Dialysis Musculoskeltal Medical History: Denies Hx Arthritis Past Surgical History: Reports: Hx Abdominal Surgery, Hx Section Physical Exam - Vital signs Vitals: Temp Pulse Resp BP Pulse Ox 97.7 F 86 16 136/62 H 100 10/13/19 13:17 10/13/19 13:17 10/13/19 13:17 10/13/19 13:17 10/13/19 13:17 Course - Vital Signs Vital signs: Temp Pulse Resp BP Pulse Ox 97.7 F 86 16 136/62 H 100 10/13/19 13:20 10/13/19 13:17 10/13/19 13:17 10/13/19 13:17 10/13/19 13:17 Doctor's Discharge - Discharge Referrals: CRISTINA URIOSTEGUI FNP [Primary Care Provider] - Follow up as needed
[2019-10-13 14:08] LABS: ABSOLUTE BASOPHILS # (AUTO) 0.1 10^3/uL (0.0-0.2); ABSOLUTE EOSINOPHILS # (AUTO) 0.1 10^3/uL (0.0-0.6); ABSOLUTE LYMPHOCYTES (AUTO) 1.2 10^3/uL (0.5-4.7); ABSOLUTE MONOCYTES (AUTO) 0.7 10^3/uL (0.1-1.4); BASOPHILS % (AUTO) 0.7 % (0-2); EOSINOPHILS % (AUTO) 0.6 % (0-6); HEMATOCRIT 40.8 % (36.0-47.0); HEMOGLOBIN 14.2 g/dL (12.0-15.5); LYMPHOCYTES % (AUTO) 12.8 % (13-45); MEAN CORPUSCULAR HEMOGLOBIN 30.1 pg (27.0-33.4); MEAN CORPUSCULAR HGB CONC 34.9 g/dL (32.0-36.0); MEAN CORPUSCULAR VOLUME 86 fl (80-97); MONOCYTES % (AUTO) 8.1 % (3-13); PLATELET COUNT 351 10^3/uL (150-450); RED BLOOD COUNT 4.73 10^6/uL (3.72-5.28); RED CELL DISTRIBUTION WIDTH 13.6 % (11.5-14.0); SEGMENTED NEUTROPHILS % (AUTO) 77.8 % (42-78); TOTAL CELLS COUNTED % (AUTO) 100 %
[2019-10-13 14:13] LABS: INTERNATIONAL RATION (INR) 0.92; PROTHROMBIN TIME 12.3 SEC (11.4-15.4)
[2019-10-13 14:14] LABS: PARTIAL THROMBOPLASTIN TIME 20.8 SEC (23.5-35.8)
[2019-10-13 14:18] LABS: APPEARANCE,URINE CLEAR; BILIRUBIN,URINE NEGATIVE (NEGATIVE); COLOR,URINE STRAW; GLUCOSE, URINE NEGATIVE (NEGATIVE); KETONES,URINE NEGATIVE (NEGATIVE); LEUKOCYTE ESTERASE,URINE TRACE (NEGATIVE); NITRITE,URINE NEGATIVE (NEGATIVE); PROTEIN,URINE NEGATIVE (NEGATIVE); URINE SPECIFIC GRAVITY 1.005; UROBILINOGEN,URINE NEGATIVE mg/dL (<2.0)
[2019-10-13 14:27] LABS: ALBUMIN 4.2 g/dL (3.5-5.0); ALKALINE PHOSPHATASE 154 U/L (38-126); ANION GAP 9 (5-19); ASPARTATE AMINO TRANSFERASE 24 U/L (14-36); BILIRUBIN,TOTAL 0.3 mg/dL (0.2-1.3); BLOOD UREA NITROGEN 10 mg/dL (7-20); CALCIUM 9.5 mg/dL (8.4-10.2); CARBON DIOXIDE 25 mmol/L (22-30); CHLORIDE 105 mmol/L (98-107); GLUCOSE 116 mg/dL (75-110); PHOSPHORUS 2.6 mg/dL (2.5-4.5); POTASSIUM 4.3 mmol/L (3.6-5.0)
--- NOTE | 2019-10-13 14:33 | RADIOLOGY REPORT (SQ) ---
EXAM DESCRIPTION: CHEST SINGLE VIEW IMAGES COMPLETED DATE/TIME: 10/13/2019 2:08 pm REASON FOR STUDY: Palpitations, lightheadedness COMPARISON: PET-CT 09/29/2019 CT chest 09/22/2019 EXAM PARAMETERS: NUMBER OF VIEWS: One view. TECHNIQUE: Single frontal radiographic view of the chest acquired. RADIATION DOSE: NA LIMITATIONS: None. FINDINGS: LUNGS AND PLEURA: No opacities, masses or pneumothorax. No pleural effusion. MEDIASTINUM AND HILAR STRUCTURES: No masses. Contour normal. HEART AND VASCULAR STRUCTURES: Heart normal in size. Normal vasculature. BONES: No acute findings. HARDWARE: None in the chest. OTHER: No other significant finding. IMPRESSION: NO ACUTE RADIOGRAPHIC FINDING IN THE CHEST. TECHNICAL DOCUMENTATION: JOB ID: [id number] 2010 [employer]- All Rights Reserved Reading location - IP/workstation name: [email or web address]
--- NOTE | 2019-10-13 14:35 | RADIOLOGY REPORT (SQ) ---
EXAM DESCRIPTION: CT HEAD WITHOUT IMAGES COMPLETED DATE/TIME: 10/13/2019 2:08 pm REASON FOR STUDY: weakness, n/t of hands, R leg @1130 COMPARISON: PET-CT 09/29/2019 TECHNIQUE: Axial images acquired through the brain without intravenous contrast. Images reviewed wi th bone, brain and subdural windows. Images stored on PACS. All CT scanners at this facility use dose modulation, iterative reconstruction, and/or weight based d osing when appropriate to reduce radiation dose to as low as reasonably achievable (ALARA). [facility]: Dose Right [facility]: CareDose [facility]: Dose Right [facility]: Teradose 4D [facility]: [employer] RADIATION DOSE: CT Rad equipment meets quality standard of care and radiation dose reduction techniq ues were employed. CTDIvol: 53.2 mGy. DLP: 1044 mGy-cm. mGy. LIMITATIONS: None. FINDINGS: VENTRICLES: Normal size and contour. CEREBRUM: No masses. No hemorrhage. No midline shift. No evidence for acute infarction. Normal gra y/white matter differentiation. No areas of low density in the white matter. CEREBELLUM: No masses. No hemorrhage. No alteration of density. No evidence for acute infarction. EXTRAAXIAL SPACES: No fluid collections. No masses. ORBITS AND GLOBE: No intra- or extraconal masses. Normal contour of globe without masses. CALVARIUM: No fracture. PARANASAL SINUSES: No fluid or mucosal thickening. SOFT TISSUES: No mass or hematoma. OTHER: No other significant finding. IMPRESSION: NORMAL BRAIN CT WITHOUT CONTRAST. EVIDENCE OF ACUTE STROKE: NO. COMMENT: Quality ID # 436: Final reports with documentation of one or more dose reduction techniques (e.g., Automated exposure control, adjustment of the mA and/or kV according to patient size, use of iterative reconstruction technique) TECHNICAL DOCUMENTATION: JOB ID: [id number] 2010 [employer]- All Rights Reserved Reading location - IP/workstation name: [email or web address]
--- NOTE | 2019-10-13 14:36 | ER Document Report ---
ED General - General Chief Complaint: Numbness Stated Complaint: HAND NUMBNESS/DIZZINESS Time Seen by Provider: 10/13/19 13:19 Primary Care Provider: CRISTINA URIOSTEGUI FNP [Primary Care Provider] - Follow up as needed TRAVEL OUTSIDE OF THE [place] IN LAST 30 DAYS: No - HPI Notes: Patient is a 59-year-old female who presents to the emergency department for evaluation. While sitting at a computer this morning, at approximately 1130, she developed palpitations, no dizziness. She then developed numbness in both hands, followed by heaviness in both arms. She states her right leg felt "off" but she really cannot tell me what she means by that. She states that over the next half an hour the palpitations and heart pounding sensation subsided. Over the next 90 minutes the remainder of her symptoms subsided. The patient was recently diagnosed with metastatic colon cancer. She had surgery in 2018 to remove an obstructing colon mass. It had been considered curative at the time, and there were no lymph nodes found to be positive. On follow-up there was a mass found on her CT, and recent biopsy confirmed the recurrence of this colon cancer. She is due to start chemotherapy. - Related Data Allergies/Adverse Reactions: Sulfa (Sulfonamide Antibiotics) Allergy (Verified 10/07/19 09:20) Home Medications: Claritin D. Flonase Past Medical History - General Information source: Patient - Social History Smoking Status: Never Smoker Frequency of alcohol use: None Drug Abuse: None Family History: Reviewed & Not Pertinent, Other - Brain aneurysm Patient has homicidal ideation: No - Past Medical History Cardiac Medical History: Denies: Hx Coronary Artery Disease, Hx Heart Attack, Hx Hypertension Pulmonary Medical History: Denies: Hx Asthma, Hx Bronchitis, Hx COPD, Hx Pneumonia Neurological Medical History: Denies: Hx Cerebrovascular Accident, Hx Seizures Renal/ Medical History: Denies: Hx Peritoneal Dialysis Malignancy Medical History: Reports: Hx Colorectal Cancer - Stage II, diagnosed September 2019 Musculoskeletal Medical History: Denies Hx Arthritis Past Surgical History: Reports: Hx Abdominal Surgery - Colon resection for obstructing mass, Hx Section - X2 Review of Systems - Review of Systems Constitutional: See HPI Cardiovascular: See HPI Neurological/Psychological: See HPI -: Yes All other systems reviewed and negative Physical Exam - Vital signs Vitals: Temp Pulse Resp BP Pulse Ox 97.7 F 86 16 136/62 H 100 10/13/19 13:17 10/13/19 13:17 10/13/19 13:17 10/13/19 13:17 10/13/19 13:17 - Notes Notes: Vital signs reviewed, please refer to chart. Head is normocephalic, atraumatic. Pupils equal round, reactive to light. Neck is supple without meningismus. Heart is regular rate and rhythm. Lungs are clear to auscultation bilaterally. Abdomen is soft, nontender, normoactive bowel sounds throughout. Extremities without cyanosis, clubbing. Posterior calves are nontender. Peripheral pulses are equal. Skin is warm and dry. She has healing biopsy castellano on the right aspect of the abdomen, without any signs of surrounding ecchymosis, erythema, induration, or dehiscence. Patient is awake, alert, oriented x3. Cranial nerves II - XII are grossly intact without focal neurological deficits. Strength is plus 5 out of 5 bilateral upper and lower extremities. Sensation is intact. Reflexes symmetrical. Intact [id number], rapid alternating movements, [id number]. Course - Re-evaluation Re-evalutation: 10/13/19 14:32 Patient presents to the emergency department for evaluation. She was initially seen through triage. Laboratory investigations and imaging were ordered to there. The patient has a completely normal neurological exam. I discussed the differential diagnosis with the patient. Certainly an anxiety attack would be high on my list, especially given the recent diagnosis of cancer recurrence. Un fortunately, however, I do have pulmonary embolus on my differential, as the patient does have a known diagnosis of cancer, was suffering palpitations, and likely hyperventilation, which led to the numbness in her hands. She has no neurological deficits, I do not suspect a CVA at this time. Awaiting patient's laboratory investigations, formal reads of images by radiology. CT angiogram of the chest is ordered. The patient is asymptomatic at this time, we will continue to monitor. 10/13/19 16:37 CT angiogram of the chest failed to reveal any acute process. The patient is asymptomatic. I strongly suspect anxiety is the etiology of her symptoms, but we will have her follow-up closely with her oncologist. She is to return to the ED with worsening. - Vital Signs Vital signs: Temp Pulse Resp BP Pulse Ox 97.7 F 86 16 136/62 H 100 10/13/19 13:20 10/13/19 13:17 10/13/19 13:17 10/13/19 13:17 10/13/19 13:17 - Laboratory Result Diagrams: 10/13/19 13:35 10/13/19 13:35 Laboratory results interpreted by me: 10/13/19 10/13/19 10/13/19 13:26 13:35 13:35 Lymph % (Auto) 12.8 L APTT Creatinine 0.47 L Glucose 116 H Magnesium 2.4 H Alkaline Phosphatase 154 H Urine Blood SMALL H Ur Leukocyte Esterase TRACE H 10/13/19 13:35 Lymph % (Auto) APTT 20.8 L Creatinine Glucose Magnesium Alkaline Phosphatase Urine Blood Ur Leukocyte Esterase - EKG Interpretation by Me Additional EKG results interpreted by me: 10/13/19 14:36 Sinus mechanism with a rate of 84 bpm. Normal axis and intervals. No acute ST changes concerning for ischemia or infarction. Discharge - Discharge Clinical Impression: Palpitations, Hand paresthesia Condition: Stable Disposition: HOME, SELF-CARE Instructions: Palpitations (Irregular or Rapid Heartrate) ([facility]), Numbness or Paresthesia ([facility]) Additional Instructions: No significant cause for your symptoms was found today on evaluation. Please follow-up closely with your oncologist and primary care provider. Return to the emergency department with worsening or new concerning symptoms of any sort. Referrals: CRISTINA URIOSTEGUI FNP [Primary Care Provider] - Follow up as needed
--- NOTE | 2019-10-13 16:09 | RADIOLOGY REPORT (SQ) ---
EXAM DESCRIPTION: CTA CHEST IMAGES COMPLETED DATE/TIME: 10/13/2019 3:43 pm REASON FOR STUDY: palpitations, cancer, eval for PE COMPARISON: PET from 09/29/[address] of the chest from 09/22/2019 TECHNIQUE: CT scan of the chest performed using helical scanning technique with dynamic intravenous contrast injection. Images reviewed with lung, soft tissue and bone windows. Reconstructed coronal and sagittal MPR images reviewed. Additional 3 dimensional post-processing performed to develop Maximal Intensity Projection images (NM P). All images stored on PACS. All CT scanners at this facility use dose modulation, iterative reconstruction, and/or weight based d osing when appropriate to reduce radiation dose to as low as reasonably achievable (ALARA). [facility]: Dose Right [facility]: CareDose [facility]: Dose Right [facility]: Teradose 4D [facility]: [employer] CONTRAST TYPE AND DOSE: Contrast/concentration: Isovue 350.00 mg/ml; Total Contrast Delivered: 58.0 ml; Total Saline Delivered: 66.0 ml Contrast bolus optimized for the pulmonary arteries. RENAL FUNCTION: Creatinine 0.47 milligrams/deciliter. RADIATION DOSE: CT Rad equipment meets quality standard of care and radiation dose reduction techniq ues were employed. CTDIvol: 13.2 - 15.7 mGy. DLP: 590 mGy-cm. LIMITATIONS: None. FINDINGS: LUNGS AND PLEURA: The trachea and main bronchi are patent. The 3 mm subpleural nodule in the left lower lobe (image 90 of series 3) and the 5 mm subpleural nodule in the right lower lobe (im age 75 series 3) are stable. The subpleural reticular opacities in the right lower lobe are also unc hanged. There is no acute consolidation, pleural effusion or pneumothorax. AORTA AND GREAT VESSELS: No thoracic aortic dissection or aneurysm. HEART: No cardiomegaly or pericardial effusion. PULMONARY ARTERIES: No emboli. HILAR AND MEDIASTINAL STRUCTURES: No adenopathy or mass. HARDWARE: None in the chest. UPPER ABDOMEN: No acute findings. THYROID AND OTHER SOFT TISSUES: No adenopathy or mass. BONES: No fracture or osseous lesion. 3D MIPS: Confirm above findings. OTHER: No other finding. IMPRESSION: No pulmonary emboli or acute cardiopulmonary process. COMMENT: Quality ID # [id number]: Final reports with documentation of one or more dose reduction techniques (e.g., Automated exposure control, adjustment of the mA and/or kV according to patient size, use of iterative reconstruction technique) TECHNICAL DOCUMENTATION: JOB ID: [id number] 2010 [employer]- All Rights Reserved Reading location - IP/workstation name: [email or web address]
[2019-10-13 16:58] VITALS: BP 140/65
--- NOTE | 2019-10-13 16:59 | EKG REPORT ---
SEVERITY:- NORMAL ECG - SINUS RHYTHM : Confirmed by: Jim Martinez MD 13-Oct-2019 16:58:37
== END 2019-10-13 16:57 | disposition home or self-care (01) ==
LOC: ER 13:13
DX: R20.0 Anesthesia of skin (principal); R00.2 Palpitations; C78.5 Secondary malignant neoplasm of large intestine and rectum; Z79.899 Other long term (current) drug therapy; Z88.2 Allergy status to sulfonamides; Z90.49 Acquired absence of other specified parts of digestive tract
CPT/HCPCS: 36415; 70450; 71045; 71275; 80053; 81001; 83735; 84100; 84443; 85025; 85610; 85730; 93005; 93010; 99284

== ENCOUNTER → 2020-01-28 | Outpatient (CLI) | payer OTHER ==
--- NOTE | 2020-01-28 13:31 | RADIOLOGY REPORT (SQ) ---
EXAM DESCRIPTION: CT CHEST WITH IMAGES COMPLETED DATE/TIME: 01/28/2020 8:36 am REASON FOR STUDY: COLON CA (C18.2) C18.2 MALIGNANT NEOPLASM OF ASCENDING COLON COMPARISON: 10/13/2019 TECHNIQUE: CT scan of the chest performed using helical scanning technique with dynamic intravenous contrast injection. Images reviewed with lung, soft tissue and bone windows. Reconstructed coronal and sagittal MPR and MIP images reviewed. All images stored on PACS. All CT scanners at this facility use dose modulation, iterative reconstruction, and/or weight based d osing when appropriate to reduce radiation dose to as low as reasonably achievable (ALARA). [facility]: Dose Right [facility]: CareDose [facility]: Dose Right [facility]: Teradose 4D [facility]: [employer] RENAL FUNCTION: GFR > 60. RADIATION DOSE: CT Rad equipment meets quality standard of care and radiation dose reduction techniq ues were employed. CTDIvol: 6.1 - 8.5 mGy. DLP: 1098 mGy-cm. . LIMITATIONS: None. FINDINGS: LUNGS AND PLEURA: Image 79, stable 4 mm pleural-based nodule right lower lobe. Stable mu nt less than 4 mm ground-glass nodules image 60-70 right middle lobe. Right basilar scarring. No ef fusions. HILAR AND MEDIASTINAL STRUCTURES: No identified masses or abnormal nodes. HEART AND VASCULAR STRUCTURES: No aneurysm or dissection. No central pulmonary emboli. No pericardi al effusion. HARDWARE: None in the chest. UPPER ABDOMEN: See separate report of the CT of the abdomen. THYROID AND OTHER SOFT TISSUES: No masses. No adenopathy. BONES: No significant finding. OTHER: No other significant finding. IMPRESSION: No evidence of metastatic disease. TECHNICAL DOCUMENTATION: JOB ID: [id number] Quality ID # [id number]: Final reports with documentation of one or more dose reduction techniques (e.g., Au tomated exposure control, adjustment of the mA and/or kV according to patient size, use of iterative reconstruction technique) 2010 [employer]- All Rights Reserved Reading location - IP/workstation name: [email or web address]
--- NOTE | 2020-01-28 13:44 | RADIOLOGY REPORT (SQ) ---
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 No oral contrast. Images reviewed with lung, soft tissue, and bone windows. Reconstructed coronal and sagittal MPR images reviewed. Delayed images for evaluation of the urinary system also acquired. All images stored on PACS. All CT scanners at this facility use dose modulation, iterative reconstruction, and/or weight based d osing when appropriate to reduce radiation dose to as low as reasonably achievable (ALARA). [facility]: Dose Right [facility]: CareDose [facility]: Dose Right [facility]: Teradose 4D [facility]: [employer] CONTRAST TYPE AND DOSE: contrast/concentration: Isovue 350.00 mmol/ml; Total Contrast Delivered: 86. 0 ml; Total Saline Delivered: 69.0 ml RENAL FUNCTION: GFR > 60. RADIATION DOSE: . LIMITATIONS: None. FINDINGS: LOWER CHEST: See separate report of the CT of the chest. LIVER: Low-density lesion posterior segment right lobe 2.1 x 1.8 cm, previously 3.7 by 3.1 cm. SPLEEN: Normal size. No focal lesions. PANCREAS: No masses. No significant calcifications. No adjacent inflammation or peripancreatic fluid collections. Pancreatic duct not dilated. GALLBLADDER: Gallstones. No inflammatory changes to suggest cholecystitis. ADRENAL GLANDS: No significant masses or asymmetry. RIGHT KIDNEY AND URETER: No solid masses. No significant calcifications. No hydronephrosis or hyd roureter. LEFT KIDNEY AND URETER: No solid masses. No significant calcifications. No hydronephrosis or hydr oureter. AORTA AND VESSELS: No aneurysm. No dissection. Renal arteries, SMA, celiac without stenosis. RETROPERITONEUM: No retroperitoneal adenopathy, hemorrhage or masses. BOWEL AND PERITONEAL CAVITY: Right hemicolectomy. No adenopathy or ascites. APPENDIX: Surgically absent. PELVIS: No mass. No free fluid. Normal bladder. ABDOMINAL WALL: Stable fat containing anterior abdominal wall hernias. BONES: No significant or acute findings. OTHER: No other significant finding. IMPRESSION: Favorable response to therapy. Decrease in size of liver metastasis. TECHNICAL DOCUMENTATION: JOB ID: [id number] Quality ID # [id number]: Final reports with documentation of one or more dose reduction techniques (e.g., Au tomated exposure control, adjustment of the mA and/or kV according to patient size, use of iterative reconstruction technique) 2010 [employer]- All Rights Reserved Reading location - IP/workstation name: [email or web address]
== END ==
LOC: RAD 08:05
PROVIDERS: ATTEND Physician Assistant Medical
DX: C18.2 Malignant neoplasm of ascending colon (principal)
CPT/HCPCS: 71260; 74177; 82565